=== PATIENT | female | born 1945 | race Caucasian/White ===

== ENCOUNTER 2022-04-03 12:36 | Observation (INO) ==
--- NOTE | 2022-03-29 14:49 | Anesthesiology Consultation ---
Date of Service March 29, 2022 Assessment & Plan (1) Encounter for pre-operative examination: Chart Review Chart Review: Acceptable Risk for Surgery (pending preop Covid testings results ) and Patient NOT seen in Pre Admission Testing Per nursing assessment 03/28/2022, patient denies any recent travel. No known COVID infection in the past 90 days. Patient is fully vaccinated for COVID. No known Covid positive exposures or Covid related symptoms. Preop Covid testing scheduled 04/01/22= will await results History Surgery Operation Date: 04/03/22 14:45 Proposed Procedures p Right Ankle Open Reduction Internal Fixation - Zana John MD Height/Weight Height: 5 ft 2 in Weight: 57.153 kg Allergies Allergy/AdvReac Type Severity Reaction Status Date / Time Penicillins Allergy UNKNOWN Verified 03/28/22 11:31 Medications Home Medications Medication Instructions Recorded Confirmed Last Taken atorvastatin 20 mg tablet 20 mg PO QPM 11/01/21 03/28/22 Unknown calcium carbonate 500 mg calcium 500 mg PO QAM 11/01/21 03/28/22 Unknown (1,250 mg) tablet cholecalciferol (vitamin D3) 25 25 mcg PO .3x/week cap 11/01/21 03/28/22 Unknown mcg (1,000 unit) capsule conjugated estrogens 0.625 mg/gram 0.3125 mg VAGINAL .2x/weekly g 11/01/21 03/28/22 Unknown vaginal cream (Premarin) levothyroxine 75 mcg capsule 75 mcg PO QAM 11/01/21 03/28/22 Unknown sennosides 8.6 mg tablet (Natural 8.6 mg PO DAILY PRN 11/01/21 03/28/22 Unknown Senna Laxative) gabapentin 300 mg capsule 300 mg PO TID 12/10/21 03/28/22 Unknown hydrocodone 5 mg-acetaminophen 325 1 tab PO Q6H PRN #12 tab 03/22/22 03/28/22 Unknown mg tablet Past Medical History Medical History Dyslipidemia Esophageal reflux No meds History of chemotherapy 06/07/2021 - 10/09/2021 - Completed 09/15 Cycles Adriamycin, Cytoxan and Taxol History of left breast cancer Dx'd 2020 - surgery + chemo/radiation History of uterine cancer Dx'd 1972 - treated surgically Hypothyroidism Osteoarthrosis Past Family History Family History Mother , Passed in 70's of diabetic complications No problems noted. Father , Passed in 70's of stroke complications No problems noted. Brother , Passed in 70's of Esophageal Cancer No problems noted. Brother No problems noted. Son No problems noted. Son No problems noted. Son No problems noted. Other No family history of adverse response to anesthesia Past Surgical History Surgical History History of History of carpal tunnel surgery of left wrist History of carpal tunnel surgery of right wrist History of colonoscopy 02/14/2009, 09/16/2012 History of esophagogastroduodenoscopy (EGD) (07/31/16) History of left breast biopsy (02/14/21) History of lumpectomy of left breast (04/04/21) and SLN Biopsy (Dr. Armijo) History of total abdominal hysterectomy and bilateral salpingo-oophorectomy (1972) Port-A-Cath in place (05/09/21) Right Subclavian Social History Smoking Status: Never smoker Do You Dip or Chew Tobacco: No Hx Alcohol Use: No Hx Substance Use: No substance use type: does not use Lab Results Anesthesia Preop Results Results Anesthesia Widget: WBC 5.32 K/uL (4.8-10.8) 03/29/22 Hgb 12.3 g/dL (12.0-16.0) 03/29/22 Hct 38.6 % (37-47) 03/29/22 Plt 211 K/uL (130-400) 03/29/22 Na 139 mmol/L (136-145) 03/29/22 K 3.6 mmol/L (3.5-5.1) 03/29/22 Cl 101 mmol/L (98-107) 03/29/22 CO2 31 mmol/L (21-32) 03/29/22 BUN 13 mg/dl (6-23) 03/29/22 Creat 0.53 mg/dl (0.6-1.2) L 03/29/22 Glucose Level 127 mg/dl (70-99(Fasting)) H 03/29/22 Testing Electrocardiogram Date: 03/29/22 Findings: + NSR @ (70bpm ) Poor data quality Normal EKG per cardio. Echocardiogram Date: 05/02/21 EF: 60-64% LV Function: normal RWMA: + none Other Findings: + diastolic dysfunction (Grade I ); no LVH Valvular Disease: + no significant valvular disease Mild TR.
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
[~2022-04-03 12:36] MED LIST: CLINDAMYCIN 600 MG/54 ML BAG IV SCH; LACTATED RINGER'S 1,000 ML IV SCH; ROPIVACAINE 0.5% 5 MG/ML 30 ML VIAL ONE
[2022-04-03] MEDS ORDERED: PROPOFOL IV EMULSION 10 MG/ML 20 ML VIAL IV ONE ×2 (13:08→16:11)
[2022-04-03] MEDS ORDERED: LIDOCAINE 2% 2 ML VIAL/AMP(20MG/ML) INFIL ONE (13:08)
[2022-04-03] MEDS ORDERED: MIDAZOLAM HCL 1 MG/ML 2ML VIAL ONE (13:43)
[2022-04-03] MEDS ORDERED: fentaNYL citrate 100 MCG/2 ML VIAL ONE (13:44)
--- NOTE | 2022-04-03 13:47 | History & Physical Bridge Note ---
Date of Service April 03, 2022 History & Physical Bridge Note I have examined the patient, reviewed the History & Physical and in the interval since the performance of the History & Physical I have noted the following changes of clinical significance: no changes noted
[2022-04-03] MEDS ORDERED: BUPIVACAINE 0.5 % 5 MG/1 ML PF 10ML VIAL ONE (13:52)
[2022-04-03] MEDS ORDERED: ONDANSETRON INJ 2 MG/ML 2 ML VIAL IV PRN ×2 (14:17→20:57)
[2022-04-03] MEDS ORDERED: HYDROmorphone INJ 1 MG/ML SYRINGE IV PRN (14:17)
[2022-04-03] MEDS ORDERED: PROMETHAZINE HCL 12.5 MG in SODIUM CHLORIDE 0.9% 50 ML IV PRN (14:17)
[2022-04-03] MEDS ORDERED: ePHEDrine sulfate 50 MG/ML AMP IV PRN (14:17)
[2022-04-03] MEDS ORDERED: ATROPINE SULFATE 0.1 MG/ML 10ML SYR IV PRN (14:17)
[2022-04-03] MEDS ORDERED: fentaNYL citrate 100 MCG/2 ML VIAL IV PRN (14:17)
[2022-04-03] MEDS ORDERED: ONDANSETRON INJ 2 MG/ML 2 ML VIAL ONE (14:30)
[2022-04-03] MEDS ORDERED: ePHEDrine sulfate 50 MG/ML AMP ONE (14:42)
--- NOTE | 2022-04-03 16:15 | Fluoroscopy Report ---
FL ankle RT min 3V RTN CLINICAL HISTORY: ORIF RIGHT BIMALLEOLAR FX COMPARISON STUDY: Right ankle 03/22/2022. FLUOROSCOPY TIME: 64 seconds. FINDINGS: 7 fluoroscopic spot images of the right ankle demonstrate internal fixation of a bimalleola r fracture with cortical plate and screws. The hardware appears intact. Alignment is near-anatomic. IMPRESSION: Fluoroscopic assistance provided for internal fixation of a right ankle fracture. ACT 112: Negative or not required by law. Electronically signed by: Chas Leal M.D. 04/03/2022 4:14 PM
--- NOTE | 2022-04-03 16:32 | Post Operative Brief Note ---
Immediate Post Op Note v1 Date of Surgery April 03, 2022 Pre & Post Diagnosis Operation Date: 04/03/22 14:30 Pre-Op Diagnosis: Bimalleolar fracture of right ankle Post-Op Diagnosis: Bimalleolar fracture of right ankle I identified the patient and participated in the time-out.: Yes Procedure Operation Date: 04/03/22 14:30 Actual Procedures p Right Ankle Open Reduction Internal Fixation Bimalleolar Fracture(Right) - Zana John MD Surgeon Zana John MD Cartoon Designer Prosper BETTENCOURT Estimated Blood Loss 3 Findings Consistent with Post-Op Diagnosis Anesthesia Type MAC Spinal Regional Complications none Disposition Disposition: Recovery Room Overlapping Procedure I was immediately available: during the entire case.
[2022-04-03] MEDS ORDERED: oxyCODONE/ACETAMINOPHEN 5mg/325mg TAB PO PRN (16:33)
--- NOTE | 2022-04-03 18:35 | Anesthesiology Progress Note ---
Date of Service April 03, 2022 Anesthesia Post Procedure Vital Signs Vital Signs: Temp Pulse Resp BP Pulse Ox 04/03/22 18:25 79 18 108/74 95 04/03/22 18:15 66 20 113/64 98 04/03/22 18:05 62 14 111/62 95 04/03/22 17:55 60 16 109/63 94 04/03/22 17:45 65 16 112/66 97 04/03/22 17:35 60 13 105/61 95 04/03/22 17:25 36.3 C L 63 16 111/63 95 04/03/22 17:15 64 19 116/66 96 04/03/22 17:05 64 16 115/66 94 04/03/22 16:55 69 15 117/72 100 04/03/22 16:45 69 14 114/68 100 04/03/22 16:35 36.4 C L 70 16 110/66 99 04/03/22 12:50 36.5 C 79 20 139/85 97 Pain Intensity Right Ankle: Pain Intensity: 1 Transfer of Care Handoff Completed per policy Notes Mental Status: alert / awake / arousable Patient Amnestic to Procedure: Yes Nausea / Vomiting: adequately controlled Pain: adequately controlled Airway Patency, RR, SpO2: stable & adequate BP & HR: stable & adequate Hydration State: stable & adequate Neuraxial Anesthesia: was administered and sensory block is resolving Anesthetic Complications: no major complications apparent and Pt Satisfied with anesthetic care Notes: The patient has had prolonged numbness from her spinal anesthetic although it is now starting to slowly wear off. Dr. Noyola spoke to Dr. John who will admit the patient.
[2022-04-03] MEDS ORDERED: NALOXONE HCL 0.4 MG/1 ML VIAL/CARP IV PRN (20:57)
[2022-04-03] MEDS ORDERED: SODIUM CHLORIDE 0.9% 1000ML 1,000 ML IV SCH (20:57)
[2022-04-03] MEDS ORDERED: bisacodyL 10 MG SUPP PR PRN (20:57)
[2022-04-03] MEDS ORDERED: METOCLOPRAMIDE HCL INJ 5 MG/ML 2 ML VIAL IV PRN (20:57)
[2022-04-03] MEDS ORDERED: MAGNESIUM HYDROXIDE SUSP 30 ML UDC PO PRN (20:57)
[2022-04-03] MEDS ORDERED: HYDROmorphone INJ 0.5 MG/0.5 ML SYR IV PRN (20:57)
[2022-04-03] MEDS ORDERED: SENNA 8.6 MG TAB PO PRN (20:57)
[2022-04-03] MEDS ORDERED: PREMARIN VAG CRM 14 APPLN/30 GM TUBE PV SCH (20:57)
[2022-04-03] MEDS ORDERED: ATORVASTATIN 20 MG TAB PO SCH (21:00)
[2022-04-03] MEDS ORDERED: SENNA 8.6 MG TAB PO SCH (21:00)
[2022-04-03] MEDS ORDERED: CHOLECALCIFEROL 1,000 UNITS 25 MCG TAB PO SCH (21:11)
[2022-04-03] MEDS: GABAPENTIN 300 MG CAP PO SCH (21:45)
[2022-04-03] MEDS: ACETAMINOPHEN 500 MG TAB PO SCH (21:46)
[2022-04-03] MEDS: ASPIRIN 81 MG ECTAB PO SCH (21:46)
[2022-04-03] MEDS: DOCUSATE SODIUM 100 MG CAP PO SCH (21:47)
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
[2022-04-04] MEDS: oxyCODONE HCL IR 5 MG TAB (IMMEDIATE RELEASE) PO PRN ×3 (04:33→13:12)
[2022-04-04] MEDS: ACETAMINOPHEN 500 MG TAB PO SCH ×2 (06:01→13:12)
[2022-04-04] MEDS ORDERED: LEVOTHYROXINE SODIUM 75 MCG TABLET PO SCH (06:30)
[2022-04-04 07:54] LABS: Mean Corpuscular Hemoglobin 30.2 pg (25-34); Mean Corpuscular Hgb Conc 32.4 g/dL (32-36); Mean Corpuscular Volume 93.4 fL (80-100); Mean Platelet Volume 9.4 fL (7.4-10.4); Platelet Count 222 K/uL (130-400); RDW Coefficient of Variation 13.9 % (11.5-14.5); RDW Standard Deviation 47.8 fL (36.4-46.3); Red Blood Count 3.64 M/uL (4.2-5.4); White Blood Count 5.39 K/uL (4.8-10.8)
--- NOTE | 2022-04-04 07:54 | Orthopedic Progress Note ---
Date of Service April 04, 2022 Assessment & Plan (1) Bimalleolar fracture of right ankle: Plan: Postop day 1 ORIF right ankle bimalleolar fracture -PT/OT: Nonweightbearing right lower extremity -Pain management as written -DVT prophylaxis: Aspirin 81 mg twice daily -A.m. labs pending -Discharge planning: Plan on discharge home. We will recheck her later today for possible discharge home today. Admission and Anticipated Discharge Date Admission Date: April 03, 2022 Subjective Patient is postop day 1 ORIF right bimalleolar fracture. She is resting in bed comfortably. She has complaint of pain. No other complaints at this time. Review of Systems Review of Systems: All systems reviewed & are unremarkable except as noted in Subjective Physical Exam Physical Exam: Right ankle: Toes are mobile. Distal neurovascular status and sensation intact. No calf tenderness. Splint is clean, dry, intact. Constitutional: WD/WN, vitals as above Results & Data ([facility]) Vital Signs (Past 12 Hours) Vital Signs Temp Pulse Pulse Resp BP Pulse Ox 04/04/22 07:46 36.9 C 66 18 107/68 94 04/04/22 03:57 36.8 C 70 18 116/67 96 04/03/22 23:35 36.6 C 72 18 106/64 94 04/03/22 22:35 37.2 C 74 18 101/60 94 04/03/22 21:35 36.7 C 74 16 120/72 92 04/03/22 21:05 36.7 C 71 18 123/74 96 04/03/22 20:35 36.7 C 74 16 124/71 96 04/03/22 20:00 36.3 C L 73 18 103/73 94
[2022-04-04 08:28] LABS: BUN Creatinine Ratio 23.8 (10-20); Calcium 8.9 mg/dl (8.5-10.1); Creatinine Clr Calc Pharmacy 100.1 ml/min; Est GFR (African American) 115.4 ml/min; Est GFR (Non-African American) 99.6 ml/min; Potassium 3.8 mmol/L (3.5-5.1)
[2022-04-04] MEDS: GABAPENTIN 300 MG CAP PO SCH ×2 (08:51→13:12)
[2022-04-04] MEDS: ASPIRIN 81 MG ECTAB PO SCH (08:51)
[2022-04-04] MEDS: DOCUSATE SODIUM 100 MG CAP PO SCH (08:51)
[2022-04-04] MEDS ORDERED: MULTIVITAMIN TAB PO SCH (09:00)
[2022-04-04] MEDS ORDERED: CALCIUM CARBONATE 1250MG TAB PO SCH (09:00)
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
== END 2022-04-04 15:30 | disposition home or self-care (01) ==
LOC: 3N 12:36 → ASU 12:36
DX: S82.841A Displaced bimalleolar fracture of right lower leg, initial encounter for closed fracture; E03.9 Hypothyroidism, unspecified; Z79.890 Hormone replacement therapy; Y99.8 Other external cause status; Z79.899 Other long term (current) drug therapy; Z88.0 Allergy status to penicillin; E78.5 Hyperlipidemia, unspecified

== ENCOUNTER 2023-04-21 05:25 | Inpatient (IN) ==
[2023-04-21] MEDS: SODIUM CHLORIDE 0.9% 1000ML 1,000 ML IV SCH ×2 (05:56→13:37)
--- NOTE | 2023-04-21 05:56 | Emergency Department Note ---
Impression & Plan Dizziness, Hypoxia, Hyponatremia, Pancytopenia, Hypokalemia ED Provider Note ED Provider Note NAME: AMBER BEJARANO AGE:77 SEX: Female : 1945 ARRIVES VIA: EMS INFORMANT: Patient ED PROVIDER(s): Shannen Dubose DO CHIEF COMPLAINT: Dizziness HPI: This is a 77-year-old female presents emergency department via EMS due to concern for dizziness. Patient states symptoms of been going on since . She states she had a coming intermittent headaches and decreased appetite. No overt vomiting. She denies any change in vision. Patient does have chronic extremity paresthesias for which she takes gabapentin, no change in these. She states she has fallen twice due to feeling so off balance. She states the d izziness is more lightheadedness and off-balance then it is spinning. No prior history of vertigo. She denies any coming chest pain, trouble breathing, cough, URI symptoms, abdominal pain, change in urine or change in stools. She denies any recent fevers or chills. Patient has noted increased discharge from her right eye recently. PAST MEDICAL HISTORY:See Below PAST SURGICAL HISTORY:See Below FAMILY HISTORY:See Below SOCIAL HISTORY:See Below HOME MEDICATIONS:See Below ALLERGIES:See Below VITALS:See Below PHYSICAL EXAMINATION: GENERAL: alert, well appearing, well nourished, no distress, non-toxic EYE EXAM: normal conjunctiva, PERRL and EOM's grossly intact, discharge and appearance of blepharitis noted to right eye OROPHARYNX: no exudate, no erythema, lips, buccal mucosa, and tongue normal and mucous membranes are dry NECK: supple, no nuchal rigidity, no adenopathy, non-tender LUNGS: Clear to auscultation. Normal chest wall mechanics, no w/r/r HEART: no murmurs, S1 normal and S2 normal ABDOMEN: abdomen soft, non-tender, normo-active bowel sounds, no masses, no rebound or guarding. BACK: Back is symmetrical on inspection and there is no deformity, no midline tenderness, no CVA tenderness. SKIN: no rashes, petechiae, orbruising UPPER EXTREMITIES: upper extremities are grossly normal. FROM, nml pulses b/l. LOWER EXTREMITIES: No pitting edema. FROM, nml pulses b/l. NEURO EXAM: Normal sensorium, cranial nerves II-XII grossly intact, normal speech, no facial droop,nogross weakness of arms, no gross weakness of legs. Gross sensation intact. No ataxia. Vital Signs: reviewed and remarkable Differential Diagnosis: Differential diagnosis includes etiologies such as benign positional vertigo, dehydration, hypovolemia, anemia, tumor, infection, hypoglycemia, electrolyte abnormalities, cardiac sources, intracerebral event, toxicologic, neurologic, as well as others were entertained. MEDICAL DECISION MAKING: This is a 77-year-old female who presents to the emergency department due to concern for weakness and dizziness. Labs drawn and sent, IV established, EKG a nd chest ray performed at bedside interpreted by me and patient monitored on telemetry. Patient noted to be hypoxic on arrival here although denied any sense of being short of breath, denied any history of pulmonary problems, denies any recent illness. Patient had a borderline temperature of 37.9. Patient noted to have hyponatremia which may be the etiology of her weakness and dizziness leading to decreased oral intake which could also be contributing. Patient did appear clinically dehydrated. Hyponatremia noted additionally. Patient also found to be pancytopenic of unclear etiology. Patient was previously treated for malignancy, no ongoing chemotherapy at this time. No evidence of JIMI. Patient noted to have hyperbilirubinemia, this is of unclear etiology additionally. Patient denies abdominal pain. Cultures added as a precaution. CT head reassuring, CT angiography chest also reassuring. No obvious etiology to explain hypoxia. Patient given IV fluid rehydration here given clinical appearance of dehydration. I did discuss all results with the patient at bedside. Case discussed with hospitalist team for additional evaluation. Consultation(s): 0828: [facility]. ER Treatment Provided: See below Diagnostics Interpreted By Me: -ECG: Normal sinus at 83, normal axis, normal intervals, nonspecific ST/T wave changes -Cardiac Monitoring: An order was placed for continuous cardiac monitoring. The monitor shows a rate of 70 with normal sinus rhythm. -Laboratory studies: As stated above and show below. -Imaging studies: X-ray Chest: A single view study of the chest was reviewed and was negative for cardiomegaly, focal infiltrate, effusion, pulmonary edema, or wide mediastinum. Triage Nursing Note Reviewed Prior/Outside Records Reviewed - discharge summary from last admit Past Med/Surg History Medical History Dyslipidemia Esophageal reflux No meds History of chemotherapy 06/07/2021 - 10/09/2021 - Completed 09/15 Cycles Adriamycin, Cytoxan and Taxol History of left breast cancer Dx'd 2020 - surgery + chemo/radiation History of uterine cancer Dx'd 1972 - treated surgically Hypothyroidism Osteoarthrosis Surgical History History of History of carpal tunnel surgery of left wrist History of carpal tunnel surgery of right wrist History of colonoscopy 02/14/2009, 09/16/2012 History of esophagogastroduodenoscopy (EGD) (07/31/16) History of left breast biopsy (02/14/21) History of lumpectomy of left breast (04/04/21) and SLN Biopsy (Dr. Armijo) History of total abdominal hysterectomy and bilateral salpingo-oophorectomy (1 973) Port-A-Cath in place (05/09/21) Right Subclavian Family History Mother , Passed in 70's of diabetic complications No problems noted. Father , Passed in 70's of stroke complications No problems noted. Brother , Passed in 70's of Esophageal Cancer No problems noted. Brother No problems noted. Son No problems noted. Son No problems noted. Son No problems noted. 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 Safe at Home: Yes Childhood Exposure to Second-Hand Smoke: Yes (Father smoked in home ) Diet: regular caffeine: Yes (2 cups of tea/day ) during the past year weight has: decreased > 10 lbs Dental Care, Regularly: No Assistive Devices: Wheelchair Allergies Allergies Allergy/AdvReac Type Severity Reaction Status Date / Time Penicillins Allergy UNKNOWN Verified 12/27/22 08:36 Home Meds Home Medications Medication Instructions Recorded Confirmed atorvastatin 20 mg tablet 20 mg PO QPM 11/01/21 04/21/23 levothyroxine 75 mcg capsule 75 mcg PO QAM 11/01/21 04/21/23 sennosides 8.6 mg tablet (Natural 8.6 mg PO DAILY PRN constipation 11/01/21 04/21/23 Senna Laxative) estradiol 0.01% (0.1 mg/gram) 1 appful vaginal .COMPLEX 12/27/22 04/21/23 vaginal cream gabapentin 300 mg capsule 300 mg PO BID 12/27/22 04/21/23 calcium carbonate 600 mg-vitamin 1 tab PO DAILY 04/21/23 04/21/23 D3 5 mcg (200 unit) tablet Results & Data (ED) Vital Signs Vital Signs - 24 hr 04/21/23 05:35 04/21/23 05:42 04/21/23 07:50 Temperature 37.9 C H Temperature Source Oral Pulse Rate 85 87 Pulse Rate [Apical] 85 Pulse Rhythm Regular Pulse Strength Normal Respiratory Rate 22 20 Respiratory Effort / Characteristics Non-Labored Spontaneous Respiratory Depth Normal Respiratory Pattern Regular Blood Pressure 130/70 Blood Pressure [Right Arm] 122/68 Blood Pressure Mean 90 Blood Pressure Mean [Right Arm] 86 Blood Pressure Position Sitting Pulse Oximetry 88 L 98 Oxygen Delivery Method Room Air Nasal Cannula Oxygen Flow Rate 3 Sepsis Recent Fever Within 48 Hours Yes Sepsis New/Unexplained Change in Mental Status N/A Sepsis Action Taken by Nursing No Action Required Laboratory Data 04/21/23 05:40 04/21/23 05:40 Lab Results 04/21/23 04/21/23 04/21/23 Range/Units 05:40 05:40 05:40 WBC 1.71 L (4.8-10.8) K/ul RBC 3.68 L (4.20-5.40) M/uL Hgb 11.5 L (12.0-16.0) g/dl Hct 32.7 L (37.0-47.0) % MCV 88.9 (80.0-100.0) fL MCH 31.3 (25.0-34.0) pg MCHC 35.2 (32.0-36.0) g/dL RDW Std Deviation 43.8 (36.4-46.3) fL RDW Coeff of Antonette 13.3 (11.5-14.5) % Plt Count 41 L (130-400) K/uL MPV 12.0 (9.4-12.4) fL Immature Gran % (Auto) 0.6 % Neut % (Auto) 82.4 % Lymph % (Auto) 11.7 % [place] % (Auto) 5.3 % Eos % (Auto) 0.0 % Baso % (Auto) 0.0 % Neut # (Auto) 1.41 (1.40-6.50) K/uL Lymph # (Auto) 0.20 L (1.2-3.4) K/uL [place] # (Auto) 0.09 L (0.11-0.59) K/uL Eos # (Auto) 0.00 (0-0.50) K/uL Baso # (Auto) 0.00 (0-0.2) K/uL Immature Gran # (Auto) 0.01 (0.01-0.20) K/uL Toxic Vacuolation 1+ Platelet Estimate Decreased L (Normal) PT 13.8 H (9.0-12.0) Seconds INR 1.3 H (0.9-1.1) Sodium 126 L (136-145) mmol/L Potassium 3.3 L (3.5-5.1) mmol/L Chloride 92 L (98-107) mmol/L Carbon Dioxide 26 (21-32) mmol/L Anion Gap 8 (3-11) BUN 12 (6-23) mg/dl Creatinine 0.60 (0.6-1.2) mg/dl Est Cr Clr Drug Dosing 71.8 ml/min Est GFR ( Amer) 101.9 ml/min Est GFR (Non-Af Amer) 87.9 ml/min BUN/Creatinine Ratio 20.0 (10-20) Glucose 102 H (70-99(Fasting)) mg/dl Calcium 8.3 L (8.6-10.3) mg/dl Magnesium 1.7 (1.7-2.4) mg/dl Total Bilirubin 3.4 H (0.2-1.0) mg/dl AST 67 H (13-39) U/L ALT 27 (7-52) U/L Alkaline Phosphatase 71 (34-104) U/L Troponin I High Sens 17.6 H (0-14) pg/ml Total Protein 6.1 (6.0-8.3) gm/dl Albumin 3.6 (3.4-5.0) gm/dl Globulin 2.5 (2.5-4.0) gm/dl Albumin/Globulin Ratio 1.4 (0.9-2) TSH (0.300-4.500) uIu/ml Adenovirus (PCR) (NotDetected) B. pertussis DNA (PCR) (NotDetected) B.parapertussis DNA PCR (NotDetected) Lyme Disease IgG Ab (Negative) Lyme Disease IgM Ab (Negative) C. pneumoniae DNA (PCR) (NotDetected) Coronavirus OC43 (PCR) (NotDetected) Coronavirus HKU1 (PCR) (NotDetected) Coronavirus 229E (PCR) (NotDetected) SARS-CoV-2 (PCR) (NotDetected) Coronavirus NL63 (PCR) (NotDetected) Human Metapneumovir PCR (NotDetected) Influenza Type A (PCR) (NotDetected) Influenza Type B (PCR) (NotDetected) M. pneumoniae (PCR) (NotDetected) Parainfluenza 1 (PCR) (NotDetected) Parainfluenza 2 (PCR) (NotDetected) Parainfluenza 3 (PCR) (NotDetected) Parainfluenza 4 (PCR) (NotDetected) RSV (PCR) (NotDetected) Entero/Rhino (PCR) (NotDetected) 04/21/23 04/21/23 04/21/23 Range/Units 05:40 05:40 05:57 WBC (4.8-10.8) K/ul RBC (4.20-5.40) M/uL Hgb (12.0-16.0) g/dl Hct (37.0-47.0) % MCV (80.0-100.0) fL MCH (25.0-34.0) pg MCHC (32.0-36.0) g/dL RDW Std Deviation (36.4-46.3) fL RDW Coeff of Antonette (11.5-14.5) % Plt Count (130-400) K/uL MPV (9.4-12.4) fL Immature Gran % (Auto) % Neut % (Auto) % Lymph % (Auto) % [place] % (Auto) % Eos % (Auto) % Baso % (Auto) % Neut # (Auto) (1.40-6.50) K/uL Lymph # (Auto) (1.2-3.4) K/uL [place] # (Auto) (0.11-0.59) K/uL Eos # (Auto) (0-0.50) K/uL Baso # (Auto) (0-0.2) K/uL Immature Gran # (Auto) (0.01-0.20) K/uL Toxic Vacuolation Platelet Estimate (Normal) PT (9.0-12.0) Seconds INR (0.9-1.1) Sodium (136-145) mmol/L Potassium (3.5-5.1) mmol/L Chloride (98-107) mmol/L Carbon Dioxide (21-32) mmol/L Anion Gap (3-11) BUN (6-23) mg/dl Creatinine (0.6-1.2) mg/dl Est Cr Clr Drug Dosing ml/min Est GFR ( Amer) ml/min Est GFR (Non-Af Amer) ml/min BUN/Creatinine Ratio (10-20) Glucose (70-99(Fasting)) mg/dl Calcium (8.6-10.3) mg/dl Magnesium (1.7-2.4) mg/dl Total Bilirubin (0.2-1.0) mg/dl AST (13-39) U/L ALT (7-52) U/L Alkaline Phosphatase (34-104) U/L Troponin I High Sens (0-14) pg/ml Total Protein (6.0-8.3) gm/dl Albumin (3.4-5.0) gm/dl Globulin (2.5-4.0) gm/dl Albumin/Globulin Ratio (0.9-2) TSH 0.658 (0.300-4.500) uIu/ml Adenovirus (PCR) Not Detected (NotDetected) B. pertussis DNA (PCR) Not Detected (NotDetected) B.parapertussis DNA PCR Not Detected (NotDetected) Lyme Disease IgG Ab Negative (Negative) Lyme Disease IgM Ab Negative (Negative) C. pneumoniae DNA (PCR) Not Detected (NotDetected) Coronavirus OC43 (PCR) Not Detected (NotDetected) Coronavirus HKU1 (PCR) Not Detected (NotDetected) Coronavirus 229E (PCR) Not Detected (NotDetected) SARS-CoV-2 (PCR) Not Detected (NotDetected) Coronavirus NL63 (PCR) Not Detected (NotDetected) Human Metapneumovir PCR Not Detected (NotDetected) Influenza Type A (PCR) Not Detected (NotDetected) Influenza Type B (PCR) Not Detected (NotDetected) M. pneumoniae (PCR) Not Detected (NotDetected) Parainfluenza 1 (PCR) Not Detected (NotDetected) Parainfluenza 2 (PCR) Not Detected (NotDetected) Parainfluenza 3 (PCR) Not Detected (NotDetected) Parainfluenza 4 (PCR) Not Detected (NotDetected) RSV (PCR) Not Detected (NotDetected) Entero/Rhino (PCR) Not Detected (NotDetected) Administered Medications Acetaminophen (Acetaminophen 325 Mg Tab) 650 mg PO Q4H PRN PRN Reason: Pain or Fever Stop: 05/21/23 10:14 Last Admin: 04/21/23 19:43 Dose: 650 mg Documented By: DM Atorvastatin Calcium (Atorvastatin 20 Mg Tab) 20 mg PO QPM [facility] Stop: 05/21/23 20:59 Last Admin: 04/21/23 20:43 Dose: 20 mg Documented By: DM Ciprofloxacin (Ciprofloxacin Hcl 0.3% Op Soln 2.5 Ml Btl) 2 drops OP QID [facility] Stop: 04/26/23 12:59 Last Admin: 04/21/23 20:43 Dose: 2 drops Documented By: Admin: 04/21/23 16:42 Dose: 2 drops Documented By: Admin: 04/21/23 13:04 Dose: 2 drops Documented By: CARL Doxycycline Hyclate (Doxycycline Hyclate 100 Mg Cap) 100 mg PO BID [facility] Stop: 04/23/23 10:59 Last Admin: 04/21/23 20:42 Dose: 100 mg Documented By: Admin: 04/21/23 13:08 Dose: 100 mg Documented By: CARL Gabapentin (Gabapentin 300 Mg Cap) 300 mg PO BID [facility] Stop: 05/21/23 20:59 Last Admin: 04/21/23 20:43 Dose: 300 mg Documented By: ITFFANIE Ceftriaxone Sodium 2,000 mg/ (Dextrose) 70 mls @ 100 mls/hr IV Q24H [facility]; Protocol Stop: 05/05/23 09:29 Last Infusion: 04/21/23 13:16 Dose: 0 mls/hr Documented By: Admin: 04/21/23 12:22 Dose: 100 mls/hr Documented By: CARL Potassium Chloride/Sodium Chloride (Normal Saline W/20 Meq Kcl) 20 meq in 1,000 mls @ 75 mls/hr IV .[id number] [facility]; Protocol Stop: 04/22/23 12:54 Last Admin: 04/22/23 01:18 Dose: 75 mls/hr Documented By: Infusion: 04/22/23 00:44 Dose: 75 mls/hr Documented By: Admin: 04/21/23 11:24 Dose: 75 mls/hr Documented By: CARL Discontinued Medications Sodium Chloride (Nss 1000ml) 1,000 mls @ 250 mls/hr IV .Q4H [facility] Stop: 05/21/23 05:59 Last Admin: 04/21/23 13:37 Dose: Not Given Documented By: Infusion: 04/21/23 09:43 Dose: 0 mls/hr Documented By: Admin: 04/21/23 05:56 Dose: 250 mls/hr Documented By: CARL Calcium Gluconate () 1,000 mg in 60 mls @ 240 mls/hr IV NOW STA Stop: 04/21/23 09:50 Last Admin: 04/21/23 13:10 Dose: Not Given Documented By: CARL Calcium Gluconate 1,000 mg/ (Dextrose) 60 mls @ 240 mls/hr IV TODAY@1300 ONE Stop: 04/21/23 13:14 Last Infusion: 04/21/23 13:36 Dose: 0 mls/hr Documented By: Admin: 04/21/23 13:10 Dose: 240 mls/hr Documented By: TLM Potassium Chloride (Potassium Chloride Crtab 20 Meq Tabcr) 40 meq PO NOW STA Stop: 04/21/23 08:02 Last Admin: 04/21/23 08:28 Dose: 40 meq Documented By: ES Imaging Data Radiologist's Impression: Chest X-Ray 04/21/23 05:46 XR chest 1V portable CLINICAL HISTORY: Hypoxia. COMPARISON STUDY: Chest radiograph November 27, 2010. FINDINGS: Lung volumes are normal. Lungs are clear. There is no pneumothorax or pleural effusion. Cardiac size is normal. Mediastinal contours are normal. There is no evidence for pulmonary edema. IMPRESSION: No acute cardiopulmonary findings. ACT 112: Negative or not required by law. Electronically signed by: Jules Vance M.D. 04/21/2023 8:24 AM Chest CTA 04/21/23 06:06 CT angio chest PE protocol CLINICAL HISTORY: PE, hypoxia, hx of ca TECHNIQUE: Multidetector row helical CT of the chest was performed with angiographic protocol. Coronal and sagittal reformations were obtained. Coronal and sagittal MIPS were obtained from the axial data set and were submitted for review. Automated dose lowering techniques and/or adjustment according to patient size were utilized for this exam. CT DOSE: 923.58 mGy.cm Comparison: Comparison is made to chest radiograph 04/24/2023 FINDINGS: Lungs and pleura: Atelectasis versus scarring is seen in the dependent portions of the lungs. Heart and pericardium: Heart size is normal. No pericardial effusion. Vessels: Moderate atherosclerotic changes in the aorta and coronary arteries. No pulmonary embolus is seen. Mediastinum and boni: Unremarkable. Chest wall and lower neck: Unremarkable. Abdomen: A small umbilical hernia is seen. Bones: Degenerative changes in the thoracic spine. IMPRESSION: No pulmonary embolus is seen. No acute abnormalities. ACT 112: Negative or not required by law. Electronically signed by: Romulo Pérez M.D. 04/21/2023 7:[address] 04/21/23 06:06 CT head/brain wo con CLINICAL HISTORY: dizzy Technique: Contiguous axial CT images of the head were acquired from the base of the skull to the vertex without intravenous contrast administration. Images were viewed in brain, subdural and bone windows. Automated dose lowering techniques and/or adjustment according to patient size were utilized for this exam. Comparison: Comparison is made to CT head 03/22/2022 Findings: The ventricles, basal cisterns, and cerebral sulci are normal. There is no acute intracranial hemorrhage or evidence of acute territorial infarction. Neither mass effect, shift of the midline structures, nor abnormal extra-axial fluid collections are shown. Imaged portions of the paranasal sinuses and mastoid air cells are clear. The orbits appear normal. There are no acute fractures of the calvaria or scalp swelling. Impression: No acute intracranial hemorrhage, no evidence of acute territorial infarction or other acute intracranial disease process. ACT 112: Negative or not required by law. Electronically signed by: Romulo Pérez M.D. 04/21/2023 7:16 AM Discharge Plan Visit Data Chief Complaint: Dizziness Stated Complaint: Nausea, Vomiting ED Provider: Shannen Dubose Discharge Problem: Dizziness, Hypoxia, Hyponatremia, Pancytopenia, Hypokalemia Patient Disposition: Admitted As Inpatient Discharge Instructions Interventions: ED Discharge Assessment Last Done: 04/21/23 09:43
[2023-04-21 06:30] LABS: Albumin Globulin Ratio 1.4 (0.9-2); Albumin Level 3.6 gm/dl (3.4-5.0); Bilirubin,Total 3.4 mg/dl (0.2-1.0); Calcium 8.3 mg/dl (8.6-10.3); Creatinine Clr Calc Pharmacy 71.8 ml/min; Est GFR (African American) 101.9 ml/min; Est GFR (Non-African American) 87.9 ml/min; Globulin 2.5 gm/dl (2.5-4.0); Magnesium 1.7 mg/dl (1.7-2.4); Potassium 3.3 mmol/L (3.5-5.1); Total Protein 6.1 gm/dl (6.0-8.3)
[2023-04-21 06:36] LABS: Troponin I High Sensitivity 17.6 pg/ml (0-14)
[2023-04-21 06:51] LABS: Hematocrit (blood only) 32.7 % (37.0-47.0); Hemoglobin 11.5 g/dl (12.0-16.0); Mean Corpuscular Hemoglobin 31.3 pg (25.0-34.0); Mean Corpuscular Hgb Conc 35.2 g/dL (32.0-36.0); Mean Corpuscular Volume 88.9 fL (80.0-100.0); Platelet Count 41 K/uL (130-400); RDW Coefficient of Variation 13.3 % (11.5-14.5); RDW Standard Deviation 43.8 fL (36.4-46.3); Red Blood Count 3.68 M/uL (4.20-5.40); White Blood Count 1.71 K/ul (4.8-10.8)
[2023-04-21 06:56] LABS: Immature Granulocytes # (auto) 0.01 K/uL (0.01-0.20); Immature Granulocytes % (auto) 0.6 %; Lymphocytes % (auto) 11.7 %; Monocytes # (auto) 0.09 K/uL (0.11-0.59); Monocytes % (auto) 5.3 %; Neutrophils # (auto) 1.41 K/uL (1.40-6.50); Neutrophils % (auto) 82.4 %; Platelet Estimate Decreased (Normal); Toxic Vacuolation 1+
[2023-04-21 07:02] LABS: Adenovirus PCR Not Detected (NotDetected); Bordetella parapertussis PCR Not Detected (NotDetected); Bordetella pertussis PCR Not Detected (NotDetected); Chlamydia pneumoniae PCR Not Detected (NotDetected); Coronavirus 229E PCR Not Detected (NotDetected); Coronavirus CoV-2 (COVID19)PCR Not Detected (NotDetected); Coronavirus HKU1 PCR Not Detected (NotDetected); Coronavirus NL63 PCR Not Detected (NotDetected); Coronavirus OC43PCR Not Detected (NotDetected); Human Metapneumovirus PCR Not Detected (NotDetected); Influenza A PCR Not Detected (NotDetected); Influenza B PCR Not Detected (NotDetected); Mycoplasma pneumoniae PCR Not Detected (NotDetected); Parainfluenza Virus 1 PCR Not Detected (NotDetected); Parainfluenza Virus 2 PCR Not Detected (NotDetected); Parainfluenza Virus 3 PCR Not Detected (NotDetected); Parainfluenza Virus 4 PCR Not Detected (NotDetected); Respiratory Syncytial VirusPCR Not Detected (NotDetected); Rhinovirus/Enterovirus PCR Not Detected (NotDetected)
[2023-04-21 07:05] LABS: INR 1.3 (0.9-1.1); Prothrombin Time 13.8 Seconds (9.0-12.0)
--- NOTE | 2023-04-21 07:19 | CT Scan Report ---
CT head/brain wo con CLINICAL HISTORY: dizzy Technique: Contiguous axial CT images of the head were acquired from the base of the skull to the dayna mihai without intravenous contrast administration. Images were viewed in brain, subdural and bone [facility]. Automated dose lowering techniques and/or adjustment according to patient size were utilized for this exam. Comparison: Comparison is made to CT head 03/22/2022 Findings: The ventricles, basal cisterns, and cerebral sulci are normal. There is no acute intracranial hemorrh age or evidence of acute territorial infarction. Neither mass effect, shift of the midline structures , nor abnormal extra-axial fluid collections are shown. Imaged portions of the paranasal sinuses and mastoid air cells are clear. The orbits appear normal. There are no acute fractures of the calvaria or scalp swelling. Impression: No acute intracranial hemorrhage, no evidence of acute territorial infarction or other acute intracra nial disease process. ACT 112: Negative or not required by law. Electronically signed by: Romulo Pérez M.D. 04/21/2023 7:16 AM
[2023-04-21 07:24] LABS: Lyme Ab IgG w/WB Rflx Negative (Negative); Lyme Ab IgM w/WB Rflx Negative (Negative)
--- NOTE | 2023-04-21 07:27 | CT Scan Report ---
CT angio chest PE protocol CLINICAL HISTORY: PE, hypoxia, hx of ca TECHNIQUE: Multidetector row helical CT of the chest was performed with angiographic protocol. Garcia l and sagittal reformations were obtained. Coronal and sagittal MIPS were obtained from the axial melchor a set and were submitted for review. Automated dose lowering techniques and/or adjustment according to patient size were utilized for this exam. CT DOSE: 923.58 mGy.cm Comparison: Comparison is made to chest radiograph 04/24/2023 FINDINGS: Lungs and pleura: Atelectasis versus scarring is seen in the dependent portions of the lungs. Heart and pericardium: Heart size is normal. No pericardial effusion. Vessels: Moderate atherosclerotic changes in the aorta and coronary arteries. No pulmonary embolus is seen. Mediastinum and boni: Unremarkable. Chest wall and lower neck: Unremarkable. Abdomen: A small umbilical hernia is seen. Bones: Degenerative changes in the thoracic spine. IMPRESSION: No pulmonary embolus is seen. No acute abnormalities. ACT 112: Negative or not required by law. Electronically signed by: Romulo Pérez M.D. 04/21/2023 7:24 AM
[2023-04-21] MEDS ORDERED: POTASSIUM CHLORIDE CRTAB 20 MEQ TABCR PO STA (08:01)
--- NOTE | 2023-04-21 08:25 | XRay Report ---
XR chest 1V portable CLINICAL HISTORY: Hypoxia. COMPARISON STUDY: Chest radiograph November 27, 2010. FINDINGS: Lung volumes are normal. Lungs are clear. There is no pneumothorax or pleural effusion. Car diac size is normal. Mediastinal contours are normal. There is no evidence for pulmonary edema. IMPRESSION: No acute cardiopulmonary findings. ACT 112: Negative or not required by law. Electronically signed by: Jules Vance M.D. 04/21/2023 8:24 AM
--- NOTE | 2023-04-21 08:43 | History & Physical Report ---
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 Pt w/ OP labs 04/03 that revealed unremarkable CBC except for wbc 3.71k and lymphopenia and only minimally elevated bili at 1.4. She now presents to ED today for dizziness, malaise, fatigue and poor appetite x 1 week with significant lab abnormalities. Possible Sepsis - pt with leukopenia and elevated temp of 37.9 Pancytopenia Admit to [facility] blood cultures ordered obtain urine culture Cover empirically with IV rocephin obtain Anaplasma and babesiosis, acute hepatitis panel Anemia panel Peripheral smear IVF NS + 20meq KCL 75cc/hr x 2 L RUQ US given concern for sepsis and elevated lft if infectious w/u unremarkable recommend hematology consult Hyponatremia obtain urine na and osm, serum osm given poor intake suspect dehydration continue IVF, if worsens consult nephro will repeat bmp later this afternoon Hypokalemia replete, follow bmp Hypocalcemia replete Dizziness with 2 falls vertiginous in nature suspect all related consult PT/OT, possible BPPV Hypoxia no resp sx CTA: negative PE, + atelectasis encourage spirometry Elevated troponin no ecg changes or chest pain cycle trops obtain echo in setting of hypoxia as well R eye conjunctivitis cipro gtt 4x daily x 5 days if no improvement refer to op opthal Prediabetes A1C 5.8 on 03/2023 encourage diet/lifestyle measures Hx of L breast ca s/p chemo/surg in 2020 spindle cell in remission HLD continue statin Hypothyroidism continue levothyroxine, TSH WNL DVT ppx: SCDs 2/2 thrombocytopenia FULL CODE PCP: CORINNE Dispo: admit to [facility] Pt was seen and collaborated with Dr. Duffy, please see addendum A total of 90 was spent coordinating, documenting, and providing care for this patient excluding time spent in the performance of separately billed services. This included personally viewing all current laboratories and imaging studies, medication reconciliation, outpatient chart review, and discussion with specialists. History of Present Illness Chief Complaint: Dizziness x1 week. 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 Her is at bedside. She states over the last week feeling, "off." She complains of being dizzy and feeling, "off balance." She had 2 falls, one 2 to 3 days ago [place] her barn where she fell off balance and landed on her side and this morning whenever she was trying to get out of bed. She denies loss of consciousness, presyncope or hitting her head. This is never happened to her in the past. She also complains of being extremely fatigued over the past week as well as lack of appetite and oral intake. She denies any recent illness, insect or tick bites or known sick contacts. She denies any recent change in her medications. She denies fever, chills, sweats, lightheadedness, chest pain, shortness breath, cough, URI symptoms, nausea, vomiting, abdominal pain, diarrhea, constipation, increased urgency or frequency with urination, melena or hematochezia. She does have redness and crusting to her right eye. She states this has been present for several months and when seen by her doctor was told to start Zaditor and Systane eyedrops but never started it. She denies any change in vision, itchy watery eyes or burning sensation to her eye. In ED patient remained hemodynamically stable. She was found to be hypoxic saturating at 87% on room air and therefore supplemental oxygen was placed. She did have mildly elevated temp at 37.9. Lab work revealed a significant pancytopenia with a WBC of 1.71, H&H 11.5 and 32.7 and platelet count of 41. Her INR was minimally elevated at 1.3, sodium 126, potassium 3.3, chloride 92, calcium 8.3, total bilirubin 3.4, AST 67 and troponin of 17.6. Her [employer] respiratory panel was negative and initial Lyme panel was negative as well. She underwent chest CTA which was negative for PE did reveal mild atelectasis or scarring at the bases, head CT and chest x-ray otherwise unremarkable. Allergies Allergy/AdvReac Type Severity Reaction Status Date / Time Penicillins Allergy UNKNOWN Verified 12/27/22 08:36 Home Medications Medication Instructions Recorded Confirmed Type atorvastatin 20 mg tablet 20 mg PO QPM 11/01/21 04/21/23 History levothyroxine 75 mcg capsule 75 mcg PO QAM 11/01/21 04/21/23 History sennosides 8.6 mg tablet (Natural 8.6 mg PO DAILY PRN constipation 11/01/21 04/21/23 History Senna Laxative) estradiol 0.01% (0.1 mg/gram) 1 appful vaginal .COMPLEX 12/27/22 04/21/23 History vaginal cream gabapentin 300 mg capsule 300 mg PO BID 12/27/22 04/21/23 History calcium carbonate 600 mg-vitamin 1 tab PO DAILY 04/21/23 04/21/23 History D3 5 mcg (200 unit) tablet Past Med/Surg History Medical History Dyslipidemia Esophageal reflux No meds History of chemotherapy 06/07/2021 - 10/09/2021 - Completed 09/15 Cycles Adriamycin, Cytoxan and Taxol History of left breast cancer Dx'd 2020 - surgery + chemo/radiation History of uterine cancer Dx'd 1972 - treated surgically Hypothyroidism Osteoarthrosis Surgical History History of History of carpal tunnel surgery of left wrist History of carpal tunnel surgery of right wrist History of colonoscopy 02/14/2009, 09/16/2012 History of esophagogastroduodenoscopy (EGD) (07/31/16) History of left breast biopsy (02/14/21) History of lumpectomy of left breast (04/04/21) and [facility] Biopsy (Dr. Armijo) History of total abdominal hysterectomy and bilateral salpingo-oophorectomy (1972) Port-A-Cath in place (05/09/21) Right Subclavian Family History Mother , Passed in 70's of diabetic complications No problems noted. Father , Passed in 70's of stroke complications No problems noted. Brother , Passed in 70's of Esophageal Cancer No problems noted. Brother No problems noted. Son No problems noted. Son No problems noted. Son No problems noted. 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 Safe at Home: Yes Childhood Exposure to Second-Hand Smoke: Yes (Father smoked in home ) Diet: regular caffeine: Yes (2 cups of tea/day ) during the past year weight has: decreased > 10 lbs Dental Care, Regularly: No Assistive Devices: Wheelchair Review of Systems Review of Systems: All systems reviewed & are unremarkable except as noted in HPI & below Physical Exam Physical Exam: Constitutional: WD/WN, vitals as above, NAD, sitting up in bed, pleasant, conversing easily Head: Normocephalic, Atraumatic Eyes: PERRL, conjunctivae on R with injection and crusting of eye lid, no visual acuity change,, anicteric sclerae ENMT: external ear and nose normal, oropharynx normal Neck: trachea midline, no thyromegaly normal visual inspection Respiratory: normal respiratory effort, lungs clear to auscultation, no wheeze, rales, rhonchi. Normal insp/exp effort, no accessory muscle use Cardiovascular: RRR, no murmur, no edema Vessels: no JVD or carotid bruit Chest: normal inspection of chest Abdomen: normal bowel sounds, soft, nontender, no hepatosplenomegaly Musculoskeletal: no cyanosis or clubbing, extremities motor strength 5/5 Skin: no rashes, warm and dry normal turgor Neurologic: PERRL, EOMI, accommodation nl, no face palsy, no dysarthria CN's II-XI intact bilaterally and moves all extremities Psychiatric: A+Ox3, euthymic affect Lymphatic: no cervical or axillary lymphadenopathy : deferred Results & Data Results & Data Vital Signs (Past 12 Hours) Vital Signs Temp Pulse Pulse Resp BP BP Pulse Ox 04/21/23 07:50 85 20 122/68 98 04/21/23 05:42 87 04/21/23 05:35 37.9 C H 85 22 130/70 88 L O2 Del Method O2 Flow Rate 04/21/23 07:50 Nasal Cannula 3 04/21/23 05:42 04/21/23 05:35 Room Air Diagnostic Findings Chest X-Ray 04/21/23 05:46 XR chest 1V portable CLINICAL HISTORY: Hypoxia. COMPARISON STUDY: Chest radiograph November 27, 2010. FINDINGS: Lung volumes are normal. Lungs are clear. There is no pneumothorax or pleural effusion. Cardiac size is normal. Mediastinal contours are normal. There is no evidence for pulmonary edema. IMPRESSION: No acute cardiopulmonary findings. ACT 112: Negative or not required by law. Electronically signed by: Jules Vance M.D. 04/21/2023 8:24 AM Chest CTA 04/21/23 06:06 CT angio chest PE protocol CLINICAL HISTORY: PE, hypoxia, hx of ca TECHNIQUE: Multidetector row helical CT of the chest was performed with angiographic protocol. Coronal and sagittal reformations were obtained. Coronal and sagittal MIPS were obtained from the axial data set and were submitted for review. Automated dose lowering techniques and/or adjustment according to patient size were utilized for this exam. CT DOSE: 923.58 mGy.cm Comparison: Comparison is made to chest radiograph 04/24/2023 FINDINGS: Lungs and pleura: Atelectasis versus scarring is seen in the dependent portions of the lungs. Heart and pericardium: Heart size is normal. No pericardial effusion. Vessels: Moderate atherosclerotic changes in the aorta and coronary arteries. No pulmonary embolus is seen. Mediastinum and boni: Unremarkable. Chest wall and lower neck: Unremarkable. Abdomen: A small umbilical hernia is seen. Bones: Degenerative changes in the thoracic spine. IMPRESSION: No pulmonary embolus is seen. No acute abnormalities. ACT 112: Negative or not required by law. Electronically signed by: Romulo Pérez M.D. 04/21/2023 7:[address] 04/21/23 06:06 CT head/brain wo con CLINICAL HISTORY: dizzy Technique: Contiguous axial CT images of the head were acquired from the base of the skull to the vertex without intravenous contrast administration. Images were viewed in brain, subdural and bone windows. Automated dose lowering techniques and/or adjustment according to patient size were utilized for this exam. Comparison: Comparison is made to CT head 03/22/2022 Findings: The ventricles, basal cisterns, and cerebral sulci are normal. There is no acute intracranial hemorrhage or evidence of acute territorial infarction. Neither mass effect, shift of the midline structures, nor abnormal extra-axial fluid collections are shown. Imaged portions of the paranasal sinuses and mastoid air cells are clear. The orbits appear normal. There are no acute fractures of the calvaria or scalp swelling. Impression: No acute intracranial hemorrhage, no evidence of acute territorial infarction or other acute intracranial disease process. ACT 112: Negative or not required by law. Electronically signed by: Romulo Pérez M.D. 04/21/2023 7:16 AM Medications Administered Medication List Sodium Chloride (Nss 1000ml) 1,000 mls @ 250 mls/hr IV .Q4H COLLIN Stop: 05/21/23 05:59 Last Admin: 04/21/23 05:56 Dose: 250 mls/hr Documented By: CARL Discontinued Medications Potassium Chloride (Potassium Chloride Crtab 20 Meq Tabcr) 40 meq PO NOW STA Stop: 04/21/23 08:02 Last Admin: 04/21/23 08:28 Dose: 40 meq Documented By: LEA ECG Rate (beats per minute): 83 Rhythm: sinus with SA Additional Comments: qtc 397ms COVID-19 Results Results COVID-19 Adm Lab Results: RBC 3.68 M/uL (4.20-5.40) L 04/21/23 WBC 1.71 K/ul (4.8-10.8) L 04/21/23 Hgb 11.5 g/dl (12.0-16.0) L 04/21/23 Hct 32.7 % (37.0-47.0) L 04/21/23 Plt Count 41 K/uL (130-400) L 04/21/23 Neutrophils (%) (Auto) 82.4 % 04/21/23 Lymphocytes (%) (Auto) 11.7 % 04/21/23 Monocytes # (Auto) 0.09 K/uL (0.11-0.59) L 04/21/23 Eosinophils # (Auto) 0.00 K/uL (0-0.50) 04/21/23 Immature Granulocyte % (Auto) 0.6 % 04/21/23 Neutrophils # (Auto) 1.41 K/uL (1.40-6.50) 04/21/23 Lymphocytes # (Auto) 0.20 K/uL (1.2-3.4) L 04/21/23 Monocytes # (Auto) 0.09 K/uL (0.11-0.59) L 04/21/23 Eosinophils # (Auto) 0.00 K/uL (0-0.50) 04/21/23 Basophils # (Auto) 0.00 K/uL (0-0.2) 04/21/23 Immature Granulocyte # (Auto) 0.01 K/uL (0.01-0.20) 3 Toxic Vacuolation 1+ 04/21/23 Na 127 mmol/L (136-145) L 04/21/23 K 3.6 mmol/L (3.5-5.1) 04/21/23 Cl 95 mmol/L (98-107) L 04/21/23 CO2 28 mmol/L (21-32) 04/21/23 Anion Gap 4 (3-11) 04/21/23 BUN 10 mg/dl (6-23) 04/21/23 Creatinine 0.62 mg/dl (0.6-1.2) 04/21/23 BUN/Creatinine Ratio 16.1 (10-20) 04/21/23 Glucose Level 100 mg/dl (70-99(Fasting)) H 04/21/23 Ca 8.4 mg/dl (8.6-10.3) L 04/21/23 Total Bilirubin 3.4 mg/dl (0.2-1.0) H 04/21/23 Direct Bilirubin 1.0 mg/dl (0-0.2) H 04/21/23 AST/SGOT 67 U/L (13-39) H 04/21/23 ALT/SGPT 27 U/L (7-52) 04/21/23 Alkaline Phosphatase 71 U/L (34-104) 04/21/23 Total Protein 6.1 gm/dl (6.0-8.3) 04/21/23 Albumin 3.6 gm/dl (3.4-5.0) 04/21/23 Globulin 2.5 gm/dl (2.5-4.0) 04/21/23 Albumin/Globulin Ratio 1.4 (0.9-2) 04/21/23 Procalcitonin 0.73 ng/ml (0-0.5) H 04/21/23 Ferritin > 7500.0 ng/ml (8-388) H 04/21/23 INR 1.3 (0.9-1.1) H 04/21/23 Adenovirus (PCR) Not Detected (NotDetected) 04/21/23 B. parapertussis DNA (PCR) Not Detected (NotDetected) 04/01 01/23 B. pertussis DNA (PCR) Not Detected (NotDetected) 04/21/23 C. pneumoniae DNA (PCR) Not Detected (NotDetected) 3 Coronavirus Type OC43 (PCR) Not Detected (NotDetected) Coronavirus Type HKU1 (PCR) Not Detected (NotDetected) Coronavirus Type 229E (PCR) Not Detected (NotDetected) COVID-19 PCR Not Detected (NotDetected) 04/21/23 Coronavirus Type NL63 (PCR) Not Detected (NotDetected) Human Metapneumovirus (PCR) Not Detected (NotDetected) Influenza Virus Type A (PCR) Not Detected (NotDetected) Influenza Virus Type B (PCR) Not Detected (NotDetected) M. pneumoniae (PCR) Not Detected (NotDetected) 04/21/23 Parainfluenza Type 1 (PCR) Not Detected (NotDetected) 04/01 01/23 Parainfluenza Type 2 (PCR) Not Detected (NotDetected) 04/01 01/23 Parainfluenza Type 3 (PCR) Not Detected (NotDetected) 04/01 01/23 Parainfluenza Type 4 (PCR) Not Detected (NotDetected) 04/01 01/23 RSV (PCR) Not Detected (NotDetected) 04/21/23 Enterovirus/Rhinovirus (PCR) Not Detected (NotDetected) Chest X-Ray 04/21/23 Code Status & VTE Plan Code Status FULL CODE Supervising Physician Co-Signing Physician Notes Patient seen and examined independently. Chart reviewed. Case discussed with [facility]. Will cover with doxycycline and ceftriaxone pending tick borne studies and blood cultures. Pancytopenia likely from sepsis, consider Hematology consult if infectious workup is unrevealing.
[2023-04-21] MEDS ORDERED: cefTRIAXone SODIUM 2,000 MG in DEXTROSE 5% 50 ML IV SCH (09:30)
[2023-04-21] MEDS ORDERED: ALUMINUM/MAGNESIUM SUSP 30 ML UDC PO PRN (10:15)
[2023-04-21] MEDS ORDERED: ACETAMINOPHEN 325 MG TAB PO PRN (10:15)
[2023-04-21] MEDS ORDERED: MAGNESIUM HYDROXIDE SUSP 30 ML UDC PO PRN (10:15)
[2023-04-21] MEDS ORDERED: ONDANSETRON INJ 2 MG/ML 2 ML VIAL IV PRN (10:15)
[2023-04-21] MEDS ORDERED: POLYETHYLENE (MIRALAX) 17 GM PACK PO PRN (10:15)
[2023-04-21 10:24] LABS: Iron 30 mcg/dl (35-150); Transferrin 148 mg/dl (200-360)
[2023-04-21 11:24] LABS: Appearance Urine Clear (Clear); Bacteria Urine Automated Negative (Negative); Bilirubin Urine Negative (Negative); Blood Urine 1+ (Negative); Color Urine Yellow; Epithelial Cell Urine Auto >30 /lpf (0-5); Glucose Urine UA Negative (Negative); Ketones Urine 2+ (Negative); Leukocyte Esterase Urine Negative (Negative); Nitrite Urine Negative (Negative); Protein Urine 1+ (Negative); Specific Gravity Urine > 1.045 (1.000-1.030); Urobilinogen Urine Negative (Negative); pH Urine 5.5 (4.5-7.5)
[2023-04-21] MEDS: NSS + 20MEQ KCL 20 MEQ/1,000 ML BAG IV SCH (11:24)
[2023-04-21 11:25] LABS: Ferritin > 7500.0 ng/ml (8-388)
--- NOTE | 2023-04-21 11:46 | Ultrasound Report ---
US abdomen limited CLINICAL HISTORY: elevated lfts TECHNIQUE: Multiple real-time sonographic images of the right upper quadrant were obtained. Comparison: Comparison is made to right upper quadrant ultrasound 05/21/2021 FINDINGS: The liver is diffusely homogenous with normal contour and echogenicity. No focal mass lesions are see n. No intrahepatic ductal dilatation is seen. No gallstones or sludge are identified within the g allbladder. The gallbladder wall is not thickened. There is no pericholecystic fluid present. A sonog raphic Narvaez's sign was not elicited by the plant culture manager. The common duct measures 0.5 cm in diamet er at the level of the hepatic artery. A cystic lesion is seen in the body measuring 2.0 x 1.6 x 1.4 cm. The right kidney shows normal echogenicity, cortical thickness and renal contour. The right kidney sh ows no evidence of hydronephrosis. A renal cyst is noted. No ascites or free fluid is seen in Bennett's pouch. IMPRESSION: 1. No acute abnormalities and in particular no evidence of acute cholecystitis. 2. Pancreatic cyst is seen. ACT 112: Negative or not required by law. Electronically signed by: Romulo Pérez M.D. 04/21/2023 11:44 AM
--- NOTE | 2023-04-21 11:51 | Electrocardiogram Report ---
Test Reason : Blood Pressure : / mmHG Vent. Rate : 083 BPM Atrial Rate : 083 BPM P-R Int : 180 ms QRS Dur : 096 ms QT Int : 338 ms P-R-T Axes : 025 030 008 degrees QTc Int : 397 ms Sinus rhythm with occasional Premature atrial complexes Nonspecific ST and T wave abnormality Abnormal ECG When compared with ECG of 29-MAR-2022 09:46, Non-specific change in ST segment in Inferior leads Confirmed by Akash Hodges ([id number]) on 04/21/2023 11:51:39 AM Referred By: REFERRED SELF Confirmed By:Akash Hodges
[2023-04-21] MEDS ORDERED: CALCIUM GLUCONATE 10% 1,000 MG in DEXTROSE 5% 50 ML IV ONE (13:00)
[2023-04-21] MEDS: CALCIUM GLUCONATE 1,000 MG/60 ML BAG IV STA ×2 (13:02→13:10)
[2023-04-21] MEDS: CIPROFLOXACIN HCL 0.3% OP SOLN 2.5 ML BTL OP SCH ×3 (13:04→20:43)
[2023-04-21] MEDS: DOXYCYCLINE HYCLATE 100 MG CAP PO SCH ×2 (13:08→20:42)
[2023-04-21 16:17] LABS: BUN Creatinine Ratio 16.1 (10-20); Calcium 8.4 mg/dl (8.6-10.3); Creatinine Clr Calc Pharmacy 68.5 ml/min; Est GFR (African American) 100.8 ml/min; Potassium 3.6 mmol/L (3.5-5.1)
[2023-04-21 16:23] LABS: Troponin I High Sensitivity 21.1 pg/ml (0-14)
[2023-04-21] MEDS: GABAPENTIN 300 MG CAP PO SCH (20:43)
[2023-04-21] MEDS ORDERED: ATORVASTATIN 20 MG TAB PO SCH (21:00)
[2023-04-22] MEDS: NSS + 20MEQ KCL 20 MEQ/1,000 ML BAG IV SCH (01:18)
[2023-04-22] MEDS: LEVOTHYROXINE SODIUM 75 MCG TABLET PO SCH (05:39)
[2023-04-22 07:32] LABS: Hematocrit (blood only) 30.8 % (37.0-47.0); Hemoglobin 10.6 g/dl (12.0-16.0); Mean Corpuscular Hemoglobin 30.8 pg (25.0-34.0); Mean Corpuscular Hgb Conc 34.4 g/dL (32.0-36.0); Mean Corpuscular Volume 89.5 fL (80.0-100.0); Mean Platelet Volume 12.6 fL (9.4-12.4); Platelet Count 28 K/uL (130-400); RDW Coefficient of Variation 13.3 % (11.5-14.5); RDW Standard Deviation 43.9 fL (36.4-46.3); Red Blood Count 3.44 M/uL (4.20-5.40); White Blood Count 1.61 K/ul (4.8-10.8)
[2023-04-22 07:56] LABS: Basophils # (auto) 0.02 K/uL (0-0.2); Basophils % (auto) 1.2 %; Immature Granulocytes # (auto) 0.01 K/uL (0.01-0.20); Immature Granulocytes % (auto) 0.6 %; Lymphocytes % (auto) 43.5 %; Monocytes # (auto) 0.15 K/uL (0.11-0.59); Monocytes % (auto) 9.3 %; Neutrophils # (auto) 0.73 K/uL (1.40-6.50); Neutrophils % (auto) 45.4 %
[2023-04-22 07:57] LABS: Echinocytes 1+
[2023-04-22 07:58] LABS: Albumin Globulin Ratio 1.5 (0.9-2); Albumin Level 3.2 gm/dl (3.4-5.0); BUN Creatinine Ratio 19.2 (10-20); Bilirubin,Total 1.9 mg/dl (0.2-1.0); Calcium 8.2 mg/dl (8.6-10.3); Creatinine Clr Calc Pharmacy 81.7 ml/min; Est GFR (African American) 106.8 ml/min; Est GFR (Non-African American) 92.2 ml/min; Globulin 2.1 gm/dl (2.5-4.0); Magnesium 1.9 mg/dl (1.7-2.4); Potassium 3.5 mmol/L (3.5-5.1); Total Protein 5.3 gm/dl (6.0-8.3)
[2023-04-22] MEDS: CALCIUM 600MG + VIT D 400 IU TAB PO SCH (08:06)
[2023-04-22] MEDS: CIPROFLOXACIN HCL 0.3% OP SOLN 2.5 ML BTL OP SCH ×4 (08:06→21:12)
[2023-04-22] MEDS: GABAPENTIN 300 MG CAP PO SCH ×2 (08:06→21:13)
[2023-04-22] MEDS: DOXYCYCLINE HYCLATE 100 MG CAP PO SCH ×2 (08:06→21:12)
[2023-04-22] MEDS: CEFEPIME 2,000 MG in SYRINGE 0 ML IV SCH ×2 (11:01→17:35)
--- NOTE | 2023-04-22 11:48 | Hospitalist Progress Note ---
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 Pt w/ OP labs 04/03 that revealed unremarkable CBC except for wbc 3.71k and lymphopenia and only minimally elevated bili at 1.4. She now presents to ED for dizziness, malaise, fatigue and poor appetite x 1 week with significant lab abnormalities. Possible Sepsis - pt with leukopenia and elevated temp of 37.9 Pancytopenia Admit to med tele blood cultures ordered, initial 24 hours negative Urine negative for infection Change Rocephin to cefepime given ANC 0.73, continue oral Doxy obtain Anaplasma and babesiosis, acute hepatitis panel Obtain parvo, EBV and CMV Anemia panel unrevealing, significantly elevated ferritin consistent with acute phase reactant Peripheral smear without evidence of Anaplasma or babesiosis, concern for myelodysplasia IVF NS + 20meq KCL 75cc/hr x 2 L - will complete IVF today, tolerating diet RUQ US: No acute abnormalities and in particular no evidence of acute cholecystitis.2. Pancreatic cyst is seen. Discussed with patient's spindle sander/oncologist Dr. Orantes who reviewed her chart and feels pancytopenia likely infectious Hyponatremia obtain urine na and osm, serum osm given poor intake suspect dehydration continue IVF, sodium is trending up, now 134 Hypokalemia repleted, follow bmp Hypocalcemia replete Dizziness with 2 falls vertiginous in nature suspect all related consult PT/OT, possible BPPV Hypoxia no resp sx CTA: negative PE, + atelectasis encourage spirometry Pt is now on room air Elevated troponin no ecg changes or chest pain trops remained flat echo revealed preserved EF with mod aortic valve sclerosis, no WMA R eye conjunctivitis cipro gtt 4x daily x 5 days improving, continue Prediabetes A1C 5.8 on 03/2023 encourage diet/lifestyle measures Hx of L breast ca s/p chemo/surg/XRT in 2020 spindle cell in remission HLD hold statin in setting of LFTS Hypothyroidism continue levothyroxine, TSH WNL DVT ppx: SCDs 2/2 thrombocytopenia FULL CODE PCP: CORINNE Dispo: admit to [facility] Pt was seen and collaborated with Dr. Corona, please see addendum A total of 55 was spent coordinating, documenting, and providing care for this patient excluding time spent in the performance of separately billed services. This included personally viewing all current laboratories and imaging studies, medication reconciliation, outpatient chart review, and discussion with specialists. Admission and Anticipated Discharge Date Admission Date: April 21, 2023 Supervising Physician Co-Signing Physician Notes Attending addendum: The patient was seen and examined in medical telemetry unit She has been complaining of weakness and tiredness with shortness of breath for about 3 weeks For the last 1 week she has been complaining of dizziness associated with it Denies any fever, any chills, any cough, any abdominal pain nausea and or vomiting or any diarrhea Noted to have severe pancytopenia On examination No apparent distress at rest Hemodynamically stable Chest-clear to auscultate bilaterally Heart-S1, S2 with a 2/6 ESM over precordium Abdomen benign Extremities-negative for any edema 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 Follow-up new onset pancytopenia and dizziness. Patient states she is feeling better today. She ate all of her breakfast which is the first in a week. She feels dizziness has slightly improved. She denies fever, chills, sweats, chest pain, shortness of breath, nausea, vomiting, abdominal pain. She denies any bleeding. Review of Systems Review of Systems: All systems reviewed & are unremarkable except as noted in HPI & below Physical Exam Physical Exam: Gen: WD/WN, NAD, A&O x3 HEENT: Normocephalic, atraumatic, conjunctivae moist with right eye injection but this is improving, sclerae anicteric, mucous membranes moist. Lung: Clear to Auscultation bilaterally, no wheezes/rales/rhonchi Heart: Regular rate, regular rhythm, no murmurs, rubs, or gallops Abdomen: Soft, NT, ND +BS x 4 Extremities: No edema, no rash Skin: Warm, no rash, negative turgor. Results & Data Results & Data Vital Signs (Past 12 Hours) Vital Signs Temp Pulse Pulse Resp BP BP Pulse Ox 04/22/23 11:29 36.4 C L 64 18 100/65 93 04/22/23 07:36 36.5 C 59 L 18 99/64 L 96 04/22/23 07:21 59 L 04/22/23 04:34 36.3 C L 59 L 18 100/63 92 O2 Del Method 04/22/23 11:29 Room Air 04/22/23 07:36 Room Air 04/22/23 07:21 04/22/23 04:34 Room Air Diagnostic Findings Echocardiogram done on 04/21 revealed EF 65 to 70%, grade 1 diastolic dysfunction, aortic valve sclerosis moderate Medications Administered Current Inpatient Medications Acetaminophen (Acetaminophen 325 Mg Tab) 650 mg PO Q4H PRN PRN Reason: Pain or Fever Stop: 05/21/23 10:14 Last Admin: 04/21/23 19:43 Dose: 650 mg Al Hydrox/Mg Hydrox/Simethicone (Aluminum/Magnesium Susp 30 Ml Udc) 15 ml PO Q4H PRN PRN Reason: Dyspepsia Stop: 05/21/23 10:14 Atorvastatin Calcium (Atorvastatin 20 Mg Tab) 20 mg PO QPM [facility] Stop: 05/21/23 20:59 Last Admin: 04/21/23 20:43 Dose: 20 mg Calcium/Vitamin D (Calcium 600mg + Vit D 400 Iu Tab) 1 tab PO DAILY [facility] Stop: 05/22/23 08:59 Last Admin: 04/22/23 08:06 Dose: 1 tab Ciprofloxacin (Ciprofloxacin Hcl 0.3% Op Soln 2.5 Ml Btl) 2 drops OP QID [facility] Stop: 04/26/23 12:59 Last Admin: 04/22/23 08:06 Dose: 2 drops Doxycycline Hyclate (Doxycycline Hyclate 100 Mg Cap) 100 mg PO BID [facility] Stop: 04/23/23 10:59 Last Admin: 04/22/23 08:06 Dose: 100 mg Gabapentin (Gabapentin 300 Mg Cap) 300 mg PO BID [facility] Stop: 05/21/23 20:59 Last Admin: 04/22/23 08:06 Dose: 300 mg Potassium Chloride/Sodium Chloride (Normal Saline W/20 Meq Kcl) 20 meq in 1,000 mls @ 75 mls/hr IV .[id number] [facility]; Protocol Stop: 04/22/23 12:54 Last Admin: 04/22/23 01:18 Dose: 75 mls/hr Cefepime HCl 2,000 mg/ Syringe 20 mls @ 5 mls/min IV Q8H [facility]; Protocol Stop: 04/29/23 08:29 Last Admin: 04/22/23 11:01 Dose: 5 mls/min Levothyroxine Sodium (Levothyroxine Sodium 75 Mcg Tablet) 75 mcg PO DAILYBB [facility] Stop: 05/22/23 06:29 Last Admin: 04/22/23 05:39 Dose: 75 mcg Magnesium Hydroxide (Magnesium Hydroxide Susp 30 Ml Udc) 30 ml PO Q12H PRN PRN Reason: Constipation Stop: 05/21/23 10:14 Ondansetron HCl (Ondansetron Inj 2 Mg/Ml 2 Ml Vial) 4 mg IV Q6H PRN PRN Reason: Nausea Stop: 05/21/23 10:14 Polyethylene Glycol (Polyethylene (Miralax) 17 Gm Pack) 17 gm PO DAILY PRN PRN Reason: Constipation Stop: 05/21/23 10:14
[2023-04-22 13:02] LABS: HBSAG NON-REACTIVE (NON-REACTIVE); Hepatitis A Antibody IgM NON-REACTIVE (NON-REACTIVE); Hepatitis B Core Antibody IgM NON-REACTIVE (NON-REACTIVE)
[2023-04-22] MEDS ORDERED: OPTIRAY 320 100ml IV ONE (20:43)
[2023-04-22] MEDS ORDERED: SODIUM CHLORIDE 0.9% 500 ML IV SCH (21:00)
--- NOTE | 2023-04-22 21:47 | CT Scan Report ---
Exam(s): CT ABDOMEN + PELVIS With Contrast EXAM: CT Abdomen and Pelvis With Intravenous Contrast CLINICAL HISTORY: Reason for exam: R/O Malignancy. TECHNIQUE: Axial computed tomography images of the abdomen and pelvis with intravenous contrast. CTDI is 51.29 mGy and DLP is 1055.82 mGy-cm. Automated exposure control was utilized for the study. A dose lowering technique was utilized adhering to the principles of ALARA. CONTRAST: IV and Oral contrast were administered. COMPARISON: Reference is made to prior MRI dated 05/29/2021 FINDINGS: Lung bases: Unremarkable. No mass. No consolidation. ABDOMEN: Liver: 0.4 cm hypodensity within the right hepatic lobe consistent with a cyst. Gallbladder and bile ducts: Unremarkable. No calcified stones. No ductal dilation. Pancreas: Unremarkable. No mass. No ductal dilation. Spleen: Unremarkable. No splenomegaly. Adrenals: Unremarkable. No mass. Kidneys and ureters: Simple 0.9 cm upper pole right renal cyst. No follow-up of this simple cyst is necessary. No hydronephrosis. Stomach and bowel: Unremarkable. No obstruction. No mucosal thickening. PELVIS: Appendix: No findings to suggest acute appendicitis. Bladder: Unremarkable. No mass. Reproductive: Disc-shaped hypodensity within the pelvis. ABDOMEN and PELVIS: Intraperitoneal space: Unremarkable. No free air. No significant fluid collection. Bones/joints: No acute fracture. No dislocation. Soft tissues: Unremarkable. Vasculature: Unremarkable. No abdominal aortic aneurysm. Lymph nodes: Unremarkable. No enlarged lymph nodes. IMPRESSION: No acute findings in the abdomen or pelvis. Disc shaped hypodensity within the pelvis. This may represent a vaginal pessary. Electronically signed by: Gus Rodríguez MD 04/22/23 21:46 PM
[2023-04-23] MEDS: CEFEPIME 2,000 MG in SYRINGE 0 ML IV SCH ×3 (00:36→16:57)
[2023-04-23] MEDS: LEVOTHYROXINE SODIUM 75 MCG TABLET PO SCH (06:05)
[2023-04-23 07:04] LABS: Hemoglobin 10.5 g/dl (12.0-16.0); Mean Corpuscular Hemoglobin 31.1 pg (25.0-34.0); Mean Corpuscular Volume 88.8 fL (80.0-100.0); Platelet Count 30 K/uL (130-400); RDW Coefficient of Variation 13.3 % (11.5-14.5); RDW Standard Deviation 43.6 fL (36.4-46.3); Red Blood Count 3.38 M/uL (4.20-5.40); White Blood Count 2.65 K/ul (4.8-10.8)
[2023-04-23 07:27] LABS: Albumin Globulin Ratio 1.4 (0.9-2); Albumin Level 3.1 gm/dl (3.4-5.0); BUN Creatinine Ratio 16.7 (10-20); Bilirubin,Total 1.4 mg/dl (0.2-1.0); Calcium 8.2 mg/dl (8.6-10.3); Creatinine Clr Calc Pharmacy 100.6 ml/min; Est GFR (African American) 114.6 ml/min; Est GFR (Non-African American) 98.9 ml/min; Globulin 2.2 gm/dl (2.5-4.0); Potassium 3.5 mmol/L (3.5-5.1); Total Protein 5.3 gm/dl (6.0-8.3)
[2023-04-23 08:01] LABS: Basophils # (auto) 0.02 K/uL (0-0.2); Basophils % (auto) 0.8 %; Echinocytes 1+; Eosinophils # (auto) 0.01 K/uL (0-0.50); Eosinophils % (auto) 0.4 %; Immature Granulocytes # (auto) 0.01 K/uL (0.01-0.20); Immature Granulocytes % (auto) 0.4 %; Lymphocytes # (auto) 1.22 K/uL (1.2-3.4); Monocytes # (auto) 0.18 K/uL (0.11-0.59); Monocytes % (auto) 6.8 %; Neutrophils # (auto) 1.21 K/uL (1.40-6.50); Neutrophils % (auto) 45.6 %
[2023-04-23] MEDS: CIPROFLOXACIN HCL 0.3% OP SOLN 2.5 ML BTL OP SCH ×4 (08:35→19:53)
[2023-04-23] MEDS: CALCIUM 600MG + VIT D 400 IU TAB PO SCH (08:35)
[2023-04-23] MEDS: DOXYCYCLINE HYCLATE 100 MG CAP PO SCH (08:35)
[2023-04-23] MEDS: GABAPENTIN 300 MG CAP PO SCH ×2 (08:35→19:53)
[2023-04-23 12:02] LABS: EBV Nuclear Ag Antibody >600.00 U/mL
--- NOTE | 2023-04-23 15:52 | Hospitalist Progress Note ---
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 Pt w/ OP labs 04/03 that revealed unremarkable CBC except for wbc 3.71k and lymphopenia and only minimally elevated bili at 1.4. She now presents to ED for dizziness, malaise, fatigue and poor appetite x 1 week with significant lab abnormalities. Possible Sepsis - pt with leukopenia and elevated temp of 37.9 Pancytopenia Admit to med tele blood cultures negative Urine negative for infection Change Rocephin to cefepime given ANC 0.73 CMV/EBV suspect prior infection Hepatitis panel negative Parvovirus still pending obtain Anaplasma and babesiosis serum still pending Anemia panel unrevealing, significantly elevated ferritin consistent with acute phase reactant Peripheral smear without evidence of Anaplasma or babesiosis, concern for myelodysplasia tolerating diet RUQ US: No acute abnormalities and in particular no evidence of acute cholecystitis.2. Pancreatic cyst is seen. Discussed with patient's lokie engineer/oncologist Dr. Orantes who reviewed her chart and feels pancytopenia likely infectious CT a/p ordered and reviewed w/o concern for malignancy, lymphoma, hypersplenism CBC is improving today, will repeat tomorrow and await parvovirus, again suspect infectious etiology, likely viral Hyponatremia resolving, likely 2/2 dehydration Hypokalemia repleted, follow bmp Hypocalcemia replete continue calcium supplement Dizziness with 2 falls vertiginous in nature suspect all related consult PT/OT, possible BPPV Hypoxia no resp sx 2/2 atelectasis, resolved Elevated troponin no ecg changes or chest pain trops remained flat echo revealed preserved EF with mod aortic valve sclerosis, no WMA R eye conjunctivitis cipro gtt 4x daily x 5 days improving, continue Prediabetes A1C 5.8 on 03/2023 encourage diet/lifestyle measures Hx of L breast ca s/p chemo/surg/XRT in 2020 spindle cell in remission HLD hold statin in setting of LFTS Hypothyroidism continue levothyroxine, TSH WNL DVT ppx: SCDs 2/2 thrombocytopenia FULL CODE PCP: CORINNE Dispo: admit to [facility] tele Pt was seen and collaborated with Dr. Corona, please see addendum A total of 45 was spent coordinating, documenting, and providing care for this patient excluding time spent in the performance of separately billed services. This included personally viewing all current laboratories and imaging studies, medication reconciliation, outpatient chart review, and discussion with specialists. Admission and Anticipated Discharge Date Admission Date: April 21, 2023 Supervising Physician Co-Signing Physician Notes Attending addendum: The patient was seen and examined in medical telemetry unit She has been feeling a little better with minimal improvement of the blood counts Awaiting viral studies to be back On examination Hemodynamically stable, afebrile, asymptomatic Labs were noted Awaiting viral cultures and studies Discussed with the family members and the patient Agree with assessment plan as outlined above by Tanvi Corona Subjective Patient was seen and examined in room 284. Follow-up new onset pancytopenia and dizziness. Pt is starting to feel better. She denies further dizziness. She walked with PT and said it did not recur. She denies f/c/s, chest pain, sob, n/v/d, abd pain. Review of Systems Review of Systems: All systems reviewed & are unremarkable except as noted in HPI & below Physical Exam Physical Exam: Gen: WD/WN, NAD, A&O x3 HEENT: Normocephalic, atraumatic, conjunctivae moist , sclerae anicteric, mucous membranes moist. Lung: Clear to Auscultation bilaterally, no wheezes/rales/rhonchi Heart: Regular rate, regular rhythm, no murmurs, rubs, or gallops Abdomen: Soft, NT, ND +BS x 4 Extremities: No edema, no rash Skin: Warm, no rash, negative turgor. Results & Data Results & Data Vital Signs (Past 12 Hours) Vital Signs Temp Pulse Pulse Resp BP BP Pulse Ox 04/23/23 12:22 36.8 C 67 16 109/72 95 04/23/23 08:10 64 04/23/23 06:41 36.8 C 63 18 121/78 93 O2 Del Method 04/23/23 12:22 Room Air 05/24/23 08:10 04/23/23 06:41 Room Air Laboratory Results Short CBC 04/23/23 Range/Units 05:55 WBC 2.65 L (4.8-10.8) K/ul Hgb 10.5 L (12.0-16.0) g/dl Hct 30.0 L (37.0-47.0) % Plt Count 30 L (130-400) K/uL BMP 04/23/23 05:55 Sodium 135 L Potassium 3.5 Chloride 102 Carbon Dioxide 27 BUN 7 Creatinine 0.42 L Glucose 94 Calcium 8.2 L Liver Function 04/23/23 Range/Units 05:55 Total Bilirubin 1.4 H (0.2-1.0) mg/dl AST 65 H (13-39) U/L ALT 29 (7-52) U/L Alkaline Phosphatase 72 (34-104) U/L Albumin 3.1 L (3.4-5.0) gm/dl Medications Administered Current Inpatient Medications Acetaminophen (Acetaminophen 325 Mg Tab) 650 mg PO Q4H PRN PRN Reason: Pain or Fever Stop: 05/21/23 10:14 Last Admin: 04/21/23 19:43 Dose: 650 mg Al Hydrox/Mg Hydrox/Simethicone (Aluminum/Magnesium Susp 30 Ml Udc) 15 ml PO Q4H PRN PRN Reason: Dyspepsia Stop: 05/21/23 10:14 Atorvastatin Calcium (Atorvastatin 20 Mg Tab) 20 mg PO QPM [facility] Stop: 05/21/23 20:59 Last Admin: 04/21/23 20:43 Dose: 20 mg Calcium/Vitamin D (Calcium 600mg + Vit D 400 Iu Tab) 1 tab PO DAILY [facility] Stop: 05/22/23 08:59 Last Admin: 04/23/23 08:35 Dose: 1 tab Ciprofloxacin (Ciprofloxacin Hcl 0.3% Op Soln 2.5 Ml Btl) 2 drops OP QID [facility] Stop: 04/26/23 12:59 Last Admin: 04/23/23 13:23 Dose: 2 drops Gabapentin (Gabapentin 300 Mg Cap) 300 mg PO BID [facility] Stop: 05/21/23 20:59 Last Admin: 04/23/23 08:35 Dose: 300 mg Cefepime HCl 2,000 mg/ Syringe 20 mls @ 5 mls/min IV Q8H [facility]; Protocol Stop: 04/29/23 08:29 Last Admin: 04/23/23 08:36 Dose: 5 mls/min Levothyroxine Sodium (Levothyroxine Sodium 75 Mcg Tablet) 75 mcg PO DAILYBB [facility] Stop: 05/22/23 06:29 Last Admin: 04/23/23 06:05 Dose: 75 mcg Magnesium Hydroxide (Magnesium Hydroxide Susp 30 Ml Udc) 30 ml PO Q12H PRN PRN Reason: Constipation Stop: 05/21/23 10:14 Ondansetron HCl (Ondansetron Inj 2 Mg/Ml 2 Ml Vial) 4 mg IV Q6H PRN PRN Reason: Nausea Stop: 05/21/23 10:14 Polyethylene Glycol (Polyethylene (Miralax) 17 Gm Pack) 17 gm PO DAILY PRN PRN Reason: Constipation Stop: 05/21/23 10:14
[2023-04-24] MEDS: CEFEPIME 2,000 MG in SYRINGE 0 ML IV SCH ×3 (00:20→16:39)
[2023-04-24] MEDS: LEVOTHYROXINE SODIUM 75 MCG TABLET PO SCH (05:17)
[2023-04-24 07:36] LABS: Hemoglobin 10.8 g/dl (12.0-16.0); Mean Corpuscular Hemoglobin 30.8 pg (25.0-34.0); Mean Corpuscular Hgb Conc 34.8 g/dL (32.0-36.0); Mean Corpuscular Volume 88.3 fL (80.0-100.0); Mean Platelet Volume 12.1 fL (9.4-12.4); Platelet Count 47 K/uL (130-400); RDW Coefficient of Variation 13.3 % (11.5-14.5); RDW Standard Deviation 43.3 fL (36.4-46.3); Red Blood Count 3.51 M/uL (4.20-5.40); White Blood Count 3.57 K/ul (4.8-10.8)
[2023-04-24 07:50] LABS: Albumin Globulin Ratio 1.4 (0.9-2); Albumin Level 3.2 gm/dl (3.4-5.0); BUN Creatinine Ratio 12.8 (10-20); Bilirubin,Total 1.1 mg/dl (0.2-1.0); Calcium 8.6 mg/dl (8.6-10.3); Est GFR (African American) 110.4 ml/min; Est GFR (Non-African American) 95.3 ml/min; Globulin 2.3 gm/dl (2.5-4.0); Potassium 3.3 mmol/L (3.5-5.1); Total Protein 5.5 gm/dl (6.0-8.3)
[2023-04-24 08:00] LABS: ALC (manual) 1.36 K/uL (1.2-3.4); ANC (manual) 2.03 K/uL (1.4-6.5); Lymphocytes # (manual) 0.75 K/uL (1.2-3.4); Lymphocytes % (manual) 21 %; Monocytes # (manual) 0.14 K/uL (0.11-0.59); Monocytes % (manual) 4 %; Neutrophils # (manual) 2.03 K/uL (1.40-6.50); Neutrophils % (manual) 57 %; Reactive Lymphocytes # (manual) 0.61 K/uL; Reactive Lymphocytes % (manual) 17 %
[2023-04-24] MEDS ORDERED: POTASSIUM CHLORIDE CRTAB 20 MEQ TABCR PO STA (08:16)
[2023-04-24] MEDS: CIPROFLOXACIN HCL 0.3% OP SOLN 2.5 ML BTL OP SCH ×4 (08:53→21:28)
[2023-04-24] MEDS: GABAPENTIN 300 MG CAP PO SCH ×2 (08:53→21:38)
[2023-04-24] MEDS: CALCIUM 600MG + VIT D 400 IU TAB PO SCH (08:53)
--- NOTE | 2023-04-24 13:04 | Hospitalist Progress Note ---
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 Pt w/ OP labs 04/03 that revealed unremarkable CBC except for wbc 3.71k and lymphopenia and only minimally elevated bili at 1.4. She now presents to ED for dizziness, malaise, fatigue and poor appetite x 1 week with significant lab abnormalities. Possible Sepsis - pt with leukopenia and elevated temp of 37.9 Pancytopenia Admit to med tele blood cultures negative Urine negative for infection Change Rocephin to cefepime given ANC 0.73 CMV/EBV suspect prior infection Hepatitis panel negative Parvovirus still pending obtain Anaplasma and babesiosis serum still pending Anemia panel unrevealing, significantly elevated ferritin consistent with acute phase reactant Peripheral smear without evidence of Anaplasma or babesiosis, concern for myelodysplasia tolerating diet RUQ US: No acute abnormalities and in particular no evidence of acute cholecystitis.2. Pancreatic cyst is seen. Discussed with patient's power transformer assembler/oncologist Dr. Orantes who reviewed her chart and feels pancytopenia likely infectious CT a/p ordered and reviewed w/o concern for malignancy, lymphoma, hypersplenism CBC is improving today, will repeat tomorrow and await parvovirus, again suspect infectious etiology, likely viral CBC is even better with improvement of white count and platelet hemoglobin remains stable Viral serologies sent to positive for CMV and Adolfo-Gauthier virus seems to be from prior infection, Monospot is negative and serology for parvovirus has been pending Pancytopenia secondary to viral infection which continues to improve Likely discharge tomorrow with a follow-up with power transformer assembler as an outpatient Hyponatremia resolving, likely 2/2 dehydration Hypokalemia repleted, follow bmp Hypocalcemia replete continue calcium supplement Dizziness with 2 falls vertiginous in nature suspect all related consult PT/OT, possible BPPV Dizziness has improved Hypoxia no resp sx 2/2 atelectasis, resolved Elevated troponin no ecg changes or chest pain trops remained flat echo revealed preserved EF with mod aortic valve sclerosis, no WMA R eye conjunctivitis cipro gtt 4x daily x 5 days improving, continue Prediabetes A1C 5.8 on 03/2023 encourage diet/lifestyle measures Hx of L breast ca s/p chemo/surg/XRT in 2020 spindle cell in remission HLD hold statin in setting of LFTS Hypothyroidism continue levothyroxine, TSH WNL DVT ppx: SCDs 2/2 thrombocytopenia FULL CODE PCP: CORINNE Dispo: admit to [facility] tele Admission and Anticipated Discharge Date Admission Date: April 21, 2023 Subjective 04/24/2023 The patient was seen and examined in medical telemetry unit She has been feeling much better and denies any fever and or chills, any dizziness while ambulating and any shortness of breath or palpitation She will be discharged home tomorrow Review of Systems Review of Systems: All systems reviewed and are unremarkable except as noted below Physical Exam Physical Exam: Gen: WD/WN, NAD, A&O x3 HEENT: Normocephalic, atraumatic, conjunctivae moist , sclerae anicteric, mucous membranes moist. Lung: Clear to Auscultation bilaterally, no wheezes/rales/rhonchi Heart: Regular rate, regular rhythm, no murmurs, rubs, or gallops Abdomen: Soft, NT, ND +BS x 4 Extremities: No edema, no rash Skin: Warm, no rash, negative turgor. 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 No focal sensory or motor deficit appreciated Results & Data Results & Data Vital Signs (Past 12 Hours) Vital Signs Temp Pulse Pulse Resp BP BP Pulse Ox 04/24/23 11:09 36.5 C 69 18 130/76 94 04/24/23 10:00 04/24/23 07:36 36.7 C 64 18 122/73 95 04/24/23 07:27 61 04/24/23 03:51 36.7 C 63 16 131/80 90 Pulse Ox O2 Del Method O2 Del Method 04/24/23 11:09 Room Air 04/24/23 10:00 95 Room Air 04/24/23 07:36 Room Air 04/24/23 07:27 04/24/23 03:51 Room Air Laboratory Results Short CBC 04/24/23 Range/Units 07:09 WBC 3.57 L (4.8-10.8) K/ul Hgb 10.8 L (12.0-16.0) g/dl Hct 31.0 L (37.0-47.0) % Plt Count 47 L D (130-400) K/uL BMP 04/24/23 07:09 Sodium 137 Potassium 3.3 L Chloride 102 Carbon Dioxide 31 BUN 6 Creatinine 0.47 L Glucose 101 H Calcium 8.6 Liver Function 04/24/23 Range/Units 07:09 Total Bilirubin 1.1 H (0.2-1.0) mg/dl AST 57 H (13-39) U/L ALT 29 (7-52) U/L Alkaline Phosphatase 70 (34-104) U/L Albumin 3.2 L (3.4-5.0) gm/dl Medications Administered Current Inpatient Medications Acetaminophen (Acetaminophen 325 Mg Tab) 650 mg PO Q4H PRN PRN Reason: Pain or Fever Stop: 05/21/23 10:14 Last Admin: 04/21/23 19:43 Dose: 650 mg Al Hydrox/Mg Hydrox/Simethicone (Aluminum/Magnesium Susp 30 Ml Udc) 15 ml PO Q4H PRN PRN Reason: Dyspepsia Stop: 05/21/23 10:14 Atorvastatin Calcium (Atorvastatin 20 Mg Tab) 20 mg PO QPM [facility] Stop: 05/21/23 20:59 Last Admin: 04/21/23 20:43 Dose: 20 mg Calcium/Vitamin D (Calcium 600mg + Vit D 400 Iu Tab) 1 tab PO DAILY [facility] Stop: 05/22/23 08:59 Last Admin: 04/24/23 08:53 Dose: 1 tab Ciprofloxacin (Ciprofloxacin Hcl 0.3% Op Soln 2.5 Ml Btl) 2 drops OP QID [facility] Stop: 04/26/23 12:59 Last Admin: 04/24/23 08:53 Dose: 2 drops Gabapentin (Gabapentin 300 Mg Cap) 300 mg PO BID [facility] Stop: 05/21/23 20:59 Last Admin: 04/24/23 08:53 Dose: 300 mg Cefepime HCl 2,000 mg/ Syringe 20 mls @ 5 mls/min IV Q8H [facility]; Protocol Stop: 04/29/23 08:29 Last Admin: 04/24/23 08:56 Dose: 5 mls/min Levothyroxine Sodium (Levothyroxine Sodium 75 Mcg Tablet) 75 mcg PO DAILYBB [facility] Stop: 05/22/23 06:29 Last Admin: 04/24/23 05:17 Dose: 75 mcg Magnesium Hydroxide (Magnesium Hydroxide Susp 30 Ml Udc) 30 ml PO Q12H PRN PRN Reason: Constipation Stop: 05/21/23 10:14 Ondansetron HCl (Ondansetron Inj 2 Mg/Ml 2 Ml Vial) 4 mg IV Q6H PRN PRN Reason: Nausea Stop: 05/21/23 10:14 Polyethylene Glycol (Polyethylene (Miralax) 17 Gm Pack) 17 gm PO DAILY PRN PRN Reason: Constipation Stop: 05/21/23 10:14
[2023-04-24 23:08] LABS: Babesia microti DNA Not Detected (Not Detected)
[2023-04-25] MEDS: CEFEPIME 2,000 MG in SYRINGE 0 ML IV SCH ×2 (00:05→08:25)
[2023-04-25] MEDS: LEVOTHYROXINE SODIUM 75 MCG TABLET PO SCH (05:51)
[2023-04-25 07:55] LABS: Hematocrit (blood only) 31.7 % (37.0-47.0); Hemoglobin 10.9 g/dl (12.0-16.0); Mean Corpuscular Hemoglobin 31.1 pg (25.0-34.0); Mean Corpuscular Hgb Conc 34.4 g/dL (32.0-36.0); Mean Corpuscular Volume 90.6 fL (80.0-100.0); Mean Platelet Volume 11.3 fL (9.4-12.4); Platelet Count 70 K/uL (130-400); RDW Coefficient of Variation 13.3 % (11.5-14.5); RDW Standard Deviation 44.7 fL (36.4-46.3); White Blood Count 4.29 K/ul (4.8-10.8)
[2023-04-25 08:07] LABS: BUN Creatinine Ratio 13.3 (10-20); Calcium 8.7 mg/dl (8.6-10.3); Creatinine Clr Calc Pharmacy 94.9 ml/min; Est GFR (Non-African American) 96.7 ml/min; Potassium 3.7 mmol/L (3.5-5.1)
[2023-04-25 08:11] LABS: ALC (manual) 2.75 K/uL (1.2-3.4); ANC (manual) 1.16 K/uL (1.4-6.5); Eosinophils # (manual) 0.04 K/uL (0-0.50); Eosinophils % (manual) 1 %; Lymphocytes # (manual) 1.89 K/uL (1.2-3.4); Lymphocytes % (manual) 44 %; Metamyelocytes # (manual) 0.09 K/uL (0-0); Metamyelocytes % (manual) 2 %; Monocytes % (manual) 7 %; Neutrophils # (manual) 1.16 K/uL (1.40-6.50); Neutrophils % (manual) 27 %; Platelet Estimate Decreased (Normal); RBC Morphology Unremarkable; Reactive Lymphocytes # (manual) 0.86 K/uL; Reactive Lymphocytes % (manual) 20 %
[2023-04-25] MEDS: CIPROFLOXACIN HCL 0.3% OP SOLN 2.5 ML BTL OP SCH ×2 (08:25→12:39)
[2023-04-25] MEDS: GABAPENTIN 300 MG CAP PO SCH (08:26)
[2023-04-25] MEDS: CALCIUM 600MG + VIT D 400 IU TAB PO SCH (08:26)
[2023-04-25 11:20] VITALS: TEMP 97.7; O2SAT 94
--- NOTE | 2023-04-25 12:58 | Hospitalist Progress Note ---
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 Pt w/ OP labs 04/03 that revealed unremarkable CBC except for wbc 3.71k and lymphopenia and only minimally elevated bili at 1.4. She now presents to ED for dizziness, malaise, fatigue and poor appetite x 1 week with significant lab abnormalities. Possible Sepsis - pt with leukopenia and elevated temp of 37.9 Pancytopenia Admit to med tele blood cultures negative Urine negative for infection Change Rocephin to cefepime given ANC 0.73 CMV/EBV suspect prior infection Hepatitis panel negative Parvovirus still pending obtain Anaplasma and babesiosis serum still pending Anemia panel unrevealing, significantly elevated ferritin consistent with acute phase reactant Peripheral smear without evidence of Anaplasma or babesiosis, concern for myelodysplasia tolerating diet RUQ US: No acute abnormalities and in particular no evidence of acute cholecystitis.2. Pancreatic cyst is seen. Discussed with patient's display manager/oncologist Dr. Orantes who reviewed her chart and feels pancytopenia likely infectious CT a/p ordered and reviewed w/o concern for malignancy, lymphoma, hypersplenism CBC is improving today, will repeat tomorrow and await parvovirus, again suspect infectious etiology, likely viral CBC is even better with improvement of white count and platelet hemoglobin remains stable Viral serologies sent to positive for CMV and Adolfo-Gauthier virus seems to be from prior infection, Monospot is negative and serology for parvovirus has been pending Pancytopenia secondary to viral infection which continues to improve Likely discharge tomorrow with a follow-up with display manager as an outpatient Heart pancytopenia has improved a lot with white cell count at normal, hemoglobin stable and platelet count up to 70 Vital serology was positive for previous infection of CMV and Adolfo-Gauthier virus and parvovirus serologies pending She will be discharged home this afternoon with an appointment with a display manager in 2 to 3 weeks timeframe Hyponatremia resolving, likely 2/2 dehydration He will see his PCP within 1 week Hypokalemia repleted, follow bmp Hypocalcemia replete continue calcium supplement Dizziness with 2 falls vertiginous in nature suspect all related consult PT/OT, possible BPPV Dizziness has improved Hypoxia no resp sx 2/2 atelectasis, resolved Elevated troponin no ecg changes or chest pain trops remained flat echo revealed preserved EF with mod aortic valve sclerosis, no WMA R eye conjunctivitis cipro gtt 4x daily x 5 days improving, continue Prediabetes A1C 5.8 on 03/2023 encourage diet/lifestyle measures Hx of L breast ca s/p chemo/surg/XRT in 2020 spindle cell in remission HLD hold statin in setting of LFTS Hypothyroidism continue levothyroxine, TSH WNL DVT ppx: SCDs 2/2 thrombocytopenia FULL CODE PCP: CORINNE Dispo: admit to med tele Admission and Anticipated Discharge Date Admission Date: April 21, 2023 Subjective 04/24/2023 The patient was seen and examined in medical telemetry unit She has been feeling much better and denies any fever and or chills, any dizziness while ambulating and any shortness of breath or palpitation She will be discharged home tomorrow 04/25/2023 The patient was seen and examined in medical telemetry unit She has been feeling much better and denies any weakness and/or dizziness No fever and or chills Has been ambulating in the hallway without any difficulties She will be discharged home this afternoon Review of Systems Review of Systems: All systems reviewed and are unremarkable except as noted below Physical Exam Physical Exam: Gen: WD/WN, NAD, A&O x3 HEENT: Normocephalic, atraumatic, conjunctivae moist , sclerae anicteric, mucous membranes moist. Lung: Clear to Auscultation bilaterally, no wheezes/rales/rhonchi Heart: Regular rate, regular rhythm, no murmurs, rubs, or gallops Abdomen: Soft, NT, ND +BS x 4 Extremities: No edema, no rash Skin: Warm, no rash, negative turgor. 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 No focal sensory or motor deficit appreciated Results & Data Results & Data Vital Signs (Past 12 Hours) Vital Signs Temp Pulse Pulse Resp BP BP Pulse Ox 04/25/23 11:19 36.5 C 69 18 115/80 94 04/25/23 06:00 63 04/25/23 07:34 36.6 C 67 18 124/84 93 04/25/23 03:03 36.6 C 63 18 124/80 95 O2 Del Method 04/25/23 11:19 Room Air 04/25/23 06:00 04/25/23 07:34 Room Air 04/25/23 03:03 Room Air Laboratory Results Short CBC 04/25/23 Range/Units 06:50 WBC 4.29 L (4.8-10.8) K/ul Hgb 10.9 L (12.0-16.0) g/dl Hct 31.7 L (37.0-47.0) % Plt Count 70 L (130-400) K/uL BMP 04/25/23 06:50 Sodium 138 Potassium 3.7 Chloride 102 Carbon Dioxide 32 BUN 6 Creatinine 0.45 L Glucose 101 H Calcium 8.7 Medications Administered Current Inpatient Medications Acetaminophen (Acetaminophen 325 Mg Tab) 650 mg PO Q4H PRN PRN Reason: Pain or Fever Stop: 05/21/23 10:14 Last Admin: 04/21/23 19:43 Dose: 650 mg Al Hydrox/Mg Hydrox/Simethicone (Aluminum/Magnesium Susp 30 Ml Udc) 15 ml PO Q4H PRN PRN Reason: Dyspepsia Stop: 05/21/23 10:14 Atorvastatin Calcium (Atorvastatin 20 Mg Tab) 20 mg PO QPM [facility] Stop: 05/21/23 20:59 Last Admin: 04/21/23 20:43 Dose: 20 mg Calcium/Vitamin D (Calcium 600mg + Vit D 400 Iu Tab) 1 tab PO DAILY [facility] Stop: 05/22/23 08:59 Last Admin: 04/25/23 08:26 Dose: 1 tab Ciprofloxacin (Ciprofloxacin Hcl 0.3% Op Soln 2.5 Ml Btl) 2 drops OP QID [facility] Stop: 04/26/23 12:59 Last Admin: 04/25/23 12:39 Dose: 2 drops Gabapentin (Gabapentin 300 Mg Cap) 300 mg PO BID [facility] Stop: 05/21/23 20:59 Last Admin: 04/25/23 08:26 Dose: 300 mg Cefepime HCl 2,000 mg/ Syringe 20 mls @ 5 mls/min IV Q8H [facility]; Protocol Stop: 04/29/23 08:29 Last Admin: 04/25/23 08:25 Dose: 5 mls/min Levothyroxine Sodium (Levothyroxine Sodium 75 Mcg Tablet) 75 mcg PO DAILYBB [facility] Stop: 05/22/23 06:29 Last Admin: 04/25/23 05:51 Dose: 75 mcg Magnesium Hydroxide (Magnesium Hydroxide Susp 30 Ml Udc) 30 ml PO Q12H PRN PRN Reason: Constipation Stop: 05/21/23 10:14 Ondansetron HCl (Ondansetron Inj 2 Mg/Ml 2 Ml Vial) 4 mg IV Q6H PRN PRN Reason: Nausea Stop: 05/21/23 10:14 Polyethylene Glycol (Polyethylene (Miralax) 17 Gm Pack) 17 gm PO DAILY PRN PRN Reason: Constipation Stop: 05/21/23 10:14
[2023-04-25 13:43] VITALS: BP 124/80; PULSE 77
--- NOTE | 2023-04-25 16:56 | Discharge Summary ---
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 Her is at bedside. She states over the last week feeling, "off." She complains of being dizzy and feeling, "off balance." She had 2 falls, one 2 to 3 days ago [place] her [place] where she fell off balance and landed on her side and this morning whenever she was trying to get out of bed. She denies loss of consciousness, presyncope or hitting her head. This is never happened to her in the past. She also complains of being extremely fatigued over the past week as well as lack of appetite and oral intake. She denies any recent illness, insect or tick bites or known sick contacts. She denies any recent change in her medications. She denies fever, chills, sweats, lightheadedness, chest pain, shortness breath, cough, URI symptoms, nausea, vomiting, abdominal pain, diarrhea, constipation, increased urgency or frequency with urination, melena or hematochezia. She does have redness and crusting to her right eye. She states this has been present for several months and when seen by her doctor was told to start Zaditor and Systane eyedrops but never started it. She denies any change in vision, itchy watery eyes or burning sensation to her eye. In ED patient remained hemodynamically stable. She was found to be hypoxic saturating at 87% on room air and therefore supplemental oxygen was placed. She did have mildly elevated temp at 37.9. Lab work revealed a significant pancytopenia with a WBC of 1.71, H&H 11.5 and 32.7 and platelet count of 41. Her INR was minimally elevated at 1.3, sodium 126, potassium 3.3, chloride 92, calcium 8.3, total bilirubin 3.4, AST 67 and troponin of 17.6. Her [employer] respiratory panel was negative and initial Lyme panel was negative as well. She underwent chest CTA which was negative for PE did reveal mild atelectasis or scarring at the bases, head CT and chest x-ray otherwise unremarkable. Admission Exam Per Admitting Provider Physical Exam: Constitutional: WD/WN, vitals as above, NAD, sitting up in bed, pleasant, conversing easily Head: Normocephalic, Atraumatic Eyes: PERRL, conjunctivae on R with injection and crusting of eye lid, no visual acuity change,, anicteric sclerae ENMT: external ear and nose normal, oropharynx normal Neck: trachea midline, no thyromegaly normal visual inspection Respiratory: normal respiratory effort, lungs clear to auscultation, no wheeze, rales, rhonchi. Normal insp/exp effort, no accessory muscle use Cardiovascular: RRR, no murmur, no edema Vessels: no JVD or carotid bruit Chest: normal inspection of chest Abdomen: normal bowel sounds, soft, nontender, no hepatosplenomegaly Musculoskeletal: no cyanosis or clubbing, extremities motor strength 5/5 Skin: no rashes, warm and dry normal turgor Neurologic: PERRL, EOMI, accommodation nl, no face palsy, no dysarthria CN's II-XI intact bilaterally and moves all extremities Psychiatric: A+Ox3, euthymic affect Lymphatic: no cervical or axillary lymphadenopathy : deferred Principal Diagnosis Pancytopenia likely secondary to virus infection-improved, no significant infection found Discharge Exam Gen: WD/WN, NAD, A&O x3 HEENT: Normocephalic, atraumatic, conjunctivae moist , sclerae anicteric, mucous membranes moist. Lung: Clear to Auscultation bilaterally, no wheezes/rales/rhonchi Heart: Regular rate, regular rhythm, no murmurs, rubs, or gallops Abdomen: Soft, NT, ND +BS x 4 Extremities: No edema, no rash Skin: Warm, no rash, negative turgor. 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 No focal sensory or motor deficit appreciated Discharge Data Allergies Allergy/AdvReac Type Severity Reaction Status Date / Time Penicillins Allergy UNKNOWN Verified 12/27/22 08:36 Consultations 04/21/23 08:28 ED Decision to Admit Stat Ordered Studies 04/21/23 06:06 CT angio chest PE protocol Stat CT head/brain wo con Stat 04/21/23 09:25 US abdomen limited Stat 04/22/23 17:35 CT Abd and Pelvis [CT abd pelvis oral and IV con] Routine Hospital Course (1) Pancytopenia: (2) Elevated LFTs: (3) Hyponatremia: (4) Dizziness: (5) Hypoxia: (6) Elevated troponin: Plan This is a 77-year-old female who has a significant past medical history of T2DM, hyperlipidemia, hypothyroidism, vitamin D deficiency, 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 Pt w/ OP labs 04/03 that revealed unremarkable CBC except for wbc 3.71k and lymphopenia and only minimally elevated bili at 1.4. She now presents to ED for dizziness, malaise, fatigue and poor appetite x 1 week with significant lab abnormalities. Possible Sepsis - pt with leukopenia and elevated temp of 37.9 Pancytopenia Admit to [facility] tele blood cultures negative Urine negative for infection Change Rocephin to cefepime given ANC 0.73 CMV/EBV suspect prior infection Hepatitis panel negative Parvovirus still pending obtain Anaplasma and babesiosis serum still pending Anemia panel unrevealing, significantly elevated ferritin consistent with acute phase reactant Peripheral smear without evidence of Anaplasma or babesiosis, concern for myelodysplasia tolerating diet RUQ US: No acute abnormalities and in particular no evidence of acute cholecystitis.2. Pancreatic cyst is seen. Discussed with patient's childcare center administrator/oncologist Dr. Orantes who reviewed her chart and feels pancytopenia likely infectious CT a/p ordered and reviewed w/o concern for malignancy, lymphoma, hypersplenism CBC is improving today, will repeat tomorrow and await parvovirus, again suspect infectious etiology, likely viral CBC is even better with improvement of white count and platelet hemoglobin remains stable Viral serologies sent to positive for CMV and Adolfo-Gauthier virus seems to be from prior infection, Monospot is negative and serology for parvovirus has been pending Pancytopenia secondary to viral infection which continues to improve Likely discharge tomorrow with a follow-up with childcare center administrator as an outpatient Heart pancytopenia has improved a lot with white cell count at normal, hemoglobin stable and platelet count up to 70 Vital serology was positive for previous infection of CMV and Adolfo-Gauthier virus and parvovirus serologies pending She will be discharged home this afternoon with an appointment with a childcare center administrator in 2 to 3 weeks timeframe Hyponatremia resolving, likely 2/2 dehydration He will see his PCP within 1 week Hypokalemia repleted, follow bmp Hypocalcemia replete continue calcium supplement Dizziness with 2 falls vertiginous in nature suspect all related consult PT/OT, possible BPPV Dizziness has improved Hypoxia no resp sx 2/2 atelectasis, resolved Elevated troponin no ecg changes or chest pain trops remained flat echo revealed preserved EF with mod aortic valve sclerosis, no WMA R eye conjunctivitis cipro gtt 4x daily x 5 days improving, continue Prediabetes A1C 5.8 on 03/2023 encourage diet/lifestyle measures Hx of L breast ca s/p chemo/surg/XRT in 2020 spindle cell in remission HLD hold statin in setting of LFTS Hypothyroidism continue levothyroxine, TSH WNL DVT ppx: SCDs 2/2 thrombocytopenia FULL CODE PCP: CORINNE Dispo: admit to med tele Total Time Total Time Spent Total Time Spent (In Minutes): 35 minutes Discharge Plan Discharge Items Patient Disposition: Home - Self-Care Reason For Visit: DIZZINESS Discharge Diagnosis: Pancytopenia likely secondary to virus infection-improved, no significant infection found Condition on Discharge: Good Activity: Resume your previous activity Non-emergency contact: Primary Care Provider Call non-emergency contact if: you have any medication questions and your symptoms worsen Follow-up/Referrals: Marshal Prado MD [Primary Care Provider] - (Date & Time 04/30/2023 11:00 AM Provider Marshal Prado MD Department [facility] ) Sanjeev Orantes MD [Hospitalist] - (Date & Time 05/07/2023 9:30 AM Provider Sanjeev Orantes MD Department Hematology/Oncology [facility] ) Diet: Regular Addtl Attending Provider Instructions: Take precautions to avoid falls Take your medications as advised Please keep appointments with your healthcare providers Pending Studies at Discharge: Yes Studies:: Parvovirus serology Stand-Alone Forms: [employer], Smoking Cessation Medications and DC Order Prescriptions: New ciprofloxacin HCl 0.3 % Drops 2 drp ophthalmic (eye) QID 5 Days Qty: 1 0RF Continued estradiol 0.01 % (0.1 mg/gram) cream 1 appful vaginal .COMPLEX Patient Comments: twice weekly at bedtime Rx Instructions: 1 appful vaginally; for 14 days levothyroxine 75 mcg capsule 75 mcg PO QAM atorvastatin 20 mg tablet 20 mg PO QPM sennosides [Natural Senna Laxative] 8.6 mg tablet 8.6 mg PO DAILY PRN (Reason: constipation) gabapentin 300 mg capsule 300 mg PO BID calcium carbonate-vitamin D3 600 mg-5 mcg (200 unit) Tablet 1 tab PO DAILY Discharge Orders: Discharge Order (Routine); Ordered 04/25/23 Ordered By: Miguel Howard/Other Patient Handouts: Vertigo Staying Safe, Hyponatremia Dc Admission Data Admit Date/Time: 04/21/23 08:46 Attending Provider: Miguel Corona Admit Provider: Heather Duffy Primary Care Provider: Marshal Prado Other Providers: Heather Duffy Other Interventions: Discharge Summary Assessment (RN) Last Done: 04/25/23 13:41
[2023-04-26 17:33] LABS: Parvovirus IgG 5.5 (<0.9); Parvovirus IgM 0.1 (<0.9)
== END 2023-04-25 14:01 | disposition home or self-care (01) | DRG 872 ==
LOC: ED 05:25 → 2N 08:46 → SUATTDRO 08:46 → 2N 09:43 → 2W 04-22 17:51